=== PATIENT | male | born 1945 | race Caucasian/White ===

== ENCOUNTER 2022-12-03 05:04 | Observation (INO) ==
--- NOTE | 2022-10-10 13:32 | PAT Medication Instructions ---
Medication Instructions Date of Service October 10, 2022 Home Medications Lactobacillus acidophilus 10 mg PO QAM calcium carbonate 200 mg calcium (500 mg) chewable tablet (Tums) 200 mg PO UD calcium polycarbophil 625 mg tablet (Fiber (calcium polycarbophil)) 625 mg PO UD PRN cholecalciferol (vitamin D3) 50 mcg (2,000 unit) tablet (Vitamin D3) 50 mcg PO DAILY doxazosin 8 mg tablet 8 mg PO HS duloxetine 60 mg capsule,delayed release 60 mg PO QAM febuxostat 40 mg tablet 40 mg PO QAM insulin degludec 100 unit/mL (3 mL) subcutaneous pen (Tresiba FlexTouch U-100 insulin) 1 unit subcut UD magnesium oxide 400 mg PO QAM modafinil 200 mg tablet 200 mg PO BID pantoprazole 40 mg tablet,delayed release 40 mg PO Q2D sertraline 100 mg tablet 100 mg PO QAM sodium bicarbonate 650 mg tablet 650 mg PO BID tramadol 50 mg tablet 50 mg PO Q6H PRN Continue as directed pantoprazole 40 mg tablet,delayed release 40 mg PO Q2D DO NOT take the morning of surgery Lactobacillus acidophilus 10 mg PO QAM calcium carbonate 200 mg calcium (500 mg) chewable tablet (Tums) 200 mg PO UD calcium polycarbophil 625 mg tablet (Fiber (calcium polycarbophil)) 625 mg PO UD PRN cholecalciferol (vitamin D3) 50 mcg (2,000 unit) tablet (Vitamin D3) 50 mcg PO DAILY febuxostat 40 mg tablet 40 mg PO QAM magnesium oxide 400 mg PO QAM modafinil 200 mg tablet 200 mg PO BID sodium bicarbonate 650 mg tablet 650 mg PO BID Take morning of surgery With a small sip of water, OTHERWISE NOTHING TO EAT OR DRINK AFTER MIDNIGHT: duloxetine 60 mg capsule,delayed release 60 mg PO QAM sertraline 100 mg tablet 100 mg PO QAM tramadol 50 mg tablet 50 mg PO Q6H PRN(if needed) Take evening before surgery doxazosin 8 mg tablet 8 mg PO HS modafinil 200 mg tablet 200 mg PO BID sodium bicarbonate 650 mg tablet 650 mg PO BID tramadol 50 mg tablet 50 mg PO Q6H PRN(if needed) Insulin Dependent Diabetic Patients * Test your blood sugar the morning of surgery * If Blood Sugar is GREATER THAN 150, take HALF of your regular dose of: insulin degludec 100 unit/mL (3 mL) subcutaneous pen (Tresiba FlexTouch U-100 insulin). * If Blood Sugar is LESS THAN 150, DO NOT TAKE ANY: insulin degludec 100 unit/mL (3 mL) subcutaneous pen (Tresiba FlexTouch U-100 insulin). Other Notes If you have any questions please call us at [phone] or [phone] or [phone] or [phone]
--- NOTE | 2022-10-16 10:23 | Anesthesiology Consultation ---
Date of Service October 16, 2022 Assessment & Plan (1) Encounter for pre-operative examination: - awaiting PCP clearance. - check BSG and BMP STAT am DOS. - dialysis: [facility] F. Holly with surgeon's office made aware pt should be re- scheduled to a non-dialysis day. - limb restriction: right arm. - Outpatient joint assessment: Patient is currently scheduled for inpatient pathway. If re-evaluated pending system levels during current pandemic/surgeon requests outpatient pathway, patient is NOT acceptable candidate for outpatient joint program from anesthesia standpoint. Chart Review Chart Review: Pending: Refer to Additional Notes / Consult section and Patient seen in Pre Admission Testing Teaching & Discussion Pre-Anesthesia Teaching/Discussion Notes: Instructed NPO after midnight before surgery, except medications with 15 cc of water. Medication instructions provided according to the PAT guidelines. History Surgery Operation Date: 11/19/22 07:30 Proposed Procedures p Right Total Knee Arthroplasty - Roni Whatley MD Height/Weight Height: 5 ft 8.5 in Weight: 82.554 kg Allergies Allergy/AdvReac Type Severity Reaction Status Date / Time Penicillins Allergy Severe TONGUE Verified 10/10/22 08:53 SWELLING Medications Home Medications Medication Instructions Recorded Confirmed Last Taken Lactobacillus acidophilus 10 mg PO BID 10/10/22 10/16/22 Unknown calcium carbonate 200 mg calcium 200 mg PO UD 10/10/22 10/10/22 Unknown (500 mg) chewable tablet (Tums) calcium polycarbophil 625 mg 625 mg PO UD PRN Diarrhea 10/10/22 10/10/22 Unknown tablet (Fiber (calcium polycarbophil)) cholecalciferol (vitamin D3) 50 50 mcg PO DAILY 10/10/22 10/10/22 Unknown mcg (2,000 unit) tablet (Vitamin D3) doxazosin 8 mg tablet 8 mg PO HS 10/10/22 10/10/22 Unknown duloxetine 60 mg capsule,delayed 60 mg PO QAM 10/10/22 10/10/22 Unknown release febuxostat 40 mg tablet 40 mg PO QAM 10/10/22 10/10/22 Unknown insulin degludec 100 unit/mL (3 1 unit subcut UD 10/10/22 10/10/22 Unknown mL) subcutaneous pen (Tresiba FlexTouch U-100 insulin) magnesium oxide 400 mg PO QAM 10/10/22 10/10/22 Unknown modafinil 200 mg tablet 200 mg PO BID 10/10/22 10/10/22 Unknown pantoprazole 40 mg tablet,delayed 40 mg PO Q2D 10/10/22 10/10/22 Unknown release sertraline 100 mg tablet 100 mg PO QAM 10/10/22 10/10/22 Unknown sodium bicarbonate 650 mg tablet 650 mg PO BID 10/10/22 10/10/22 Unknown tramadol 50 mg tablet 50 mg PO Q6H PRN Pain 10/10/22 10/10/22 Unknown Additional Notes: Pt takes 20 units insulin am and 50 units pm. This was updated in EMR and written on provided medication instructions, to take evening dose as usual. Pt and his verbalized full understanding and agreement, denied questions or concerns. Past Medical History Medical History (Updated 10/16/22 @ 11:23 by Krysta Palacios PA-C) AV fistula RT BPH (benign prostatic hyperplasia) Chronic kidney disease, stage 4 (severe) Depression Diabetes mellitus, type 2 IDDM Dialysis patient STARTED 10/24/20>[facility] MWF GERD (gastroesophageal reflux disease) controlled, stable per pt Hearing loss wears bilat hearing aids History of kidney stones Hx of gout Hypertension variable, per pt Mini stroke 10+ YEARS AGO>NO CURRENT PROBLEMS FROM EVENT Narcolepsy Peripheral neuropathy Sleep apnea NO DEVICE USED Patient denies h/o seizures, heart attack, heart failure, HTN, blood clots or blood transfusions. Exercise / Class Metabolic Activity III < 4 Walking/Shop/Light housework (ambulates with rolling walker, denies chest discomfort or shortness of breath with usual activities) Past Family History Family History Other No family history of adverse response to anesthesia Past Surgical History Surgical History (Updated 10/16/22 @ 11:21 by Krysta Palacios PA-C) H/O inguinal hernia repair AN INFANT H/O prostate biopsy benign H/O vascular surgery STENT PRESENT IN FISTULA History of appendectomy History of cataract surgery RT/LEFT History of colonoscopy History of esophagogastroduodenoscopy (EGD) History of lithotripsy History of repair of rotator cuff LEFT History of tonsillectomy and adenoidectomy Past Anesthesia History No Hx of Anesthesia Complications and No Family Hx of Anesthesia Complications History of PONV No Hx of PONV and No Hx of Motion Sickness Social History Smoking Status: Never smoker Do You Dip or Chew Tobacco: No Hx Alcohol Use: Yes Alcohol type: beer and wine alcohol intake frequency: holidays/special occasions only substance use type: does not use Review of Systems Patient denies chest pain, shortness of breath, dyspnea on exertion, fever, chills, cough, wheezing, or palpitations. Physical Exam Vital Signs Vitals BP 111/83 P 43 TEMP 97.7 SP02 96% on RA RESP 17 Physical Full cervical extension range of motion without pain TMD 3.5 finger breadths Mallampati Score 2 Dentition: intact, denies chipped or loose teeth, caps/crowns implants or bridges Lungs: normal respiratory effort. Clear throughout to auscultation, no adventitious breath sounds Cardiac: bradycardic rate, regular rhythm, no murmurs noted; radial pulse 2+ Carotid arteries: negative bruit bilat Lab Results Anesthesia Preop Results Results Anesthesia Widget: WBC 6.57 K/ul (4.8-10.8) 10/16/22 Hgb 11.4 g/dl (14.0-18.0) L 10/16/22 Hct 35.0 % (40.1-51.0) L 10/16/22 Plt 163 K/uL (130-400) 10/16/22 Na 139 mmol/L (136-145) 10/16/22 K 4.4 mmol/L (3.5-5.1) 10/16/22 Cl 99 mmol/L (98-107) 10/16/22 CO2 33 mmol/L (21-32) H 10/16/22 BUN 63 mg/dl (6-23) H 10/16/22 Creat 5.45 mg/dl (0.6-1.4) H* 10/16/22 Glucose Level 169 mg/dl (70-99(Fasting)) H 10/16/22 PT 10.6 Seconds (9.0-12.0) 10/16/22 PTT 28.8 Seconds (21.0-31.0) 10/16/22 INR 1.0 (0.9-1.1) 10/16/22 HA1c 6.4 % (4.5-5.6) H 10/16/22 Blood Type O Positive 10/16/22 Antibody Screen NEGATIVE 10/16/22 Testing Electrocardiogram Date: 10/16/22 Marked sinus bradycardia, rate [address] abnormality Chest X-Ray Date: 10/16/22 Right axillary vascular stents are incidentally noted. There is no pneumothorax or pleural effusion. Mild cardiomegaly. No evidence for pulmonary edema. Linear bibasilar opacities suggest atelectasis. No consolidation to suggest pneumonia. There is a suspected hiatal hernia. IMPRESSION: No acute cardiopulmonary findings. Mild cardiomegaly. COVID-19 Risk Screen Screening Information COVID-19 Screen Date: 10/16/22 Exposure 21 Days Family/Household +COVID Last 21 Days: No Exposure 10 Days Any COVID Exposure Last 10 Days: No Symptoms Last 10 Days Experienced COVID Sx Last 10 Days: No + COVID 0-90 Days COVID + in Last 0-90 Days: No
--- NOTE | 2022-10-29 16:01 | Communication Note ---
Received phone call from Dr. Whatley- he would like to schedule patient for surgery on 12/03/22 for a right TKA. Surgery would be on a Saturday (patient gets dialysis M,W,F). Dr. Whatley only has operating time on Mondays. Discussed with Dr. Morgan- recommended surgeon's office gets in touch with nephrology office for recommendations to see if patient can have surgery on Saturday and then set up patient for subsequent dialysis postop or if patient is going to need to avoid Saturday surgery all together (which in that case- patient would need to get surgery elsewhere). Dr. Whatley voices understanding with plan- his office will reach out to patient's nephrologogist regarding when patient can have surgery in regards to dialysis. He states he will be in touch with our office when plan is in place
[~2022-12-03 05:04] MED LIST: ALLERGY Noted to ORDERED Medication SCH
[2022-12-03] MEDS ORDERED: SODIUM CHLORIDE 0.9% 1000ML IV SCH (06:00)
[2022-12-03] MEDS ORDERED: FAMOTIDINE 20 MG TAB PO SCH (06:00)
[2022-12-03] MEDS ORDERED: ROPIVACAINE 0.5% HCL/PF 150 MG, BUPIVACAINE 0.75% MPF 20 ML, EPINEPHrine 30MG/30ML (OR ... INFIL SCH (06:00)
[2022-12-03] MEDS ORDERED: PREGABALIN 75 MG CAP PO SCH (06:00)
[2022-12-03] MEDS ORDERED: METOCLOPRAMIDE HCL 10 MG TABLET PO SCH (06:00)
[2022-12-03] MEDS ORDERED: TRANEXAMIC ACID 1,000 MG x 1 **For Topical Use TOP SCH (06:00)
[2022-12-03] MEDS ORDERED: dexAMETHasone 4 MG TAB PO SCH (06:00)
[2022-12-03] MEDS: ACETAMINOPHEN 500 MG TAB PO SCH ×4 (06:12→21:59)
[2022-12-03] MEDS ORDERED: BUPIVACAINE 0.5 % 5 MG/1 ML PF 10ML VIAL ONE (06:23)
[2022-12-03] MEDS ORDERED: ROPIVACAINE 0.5% 5 MG/ML 30 ML VIAL ONE (06:23)
[2022-12-03] MEDS ORDERED: LIDOCAINE 2% MPF LOCAL 5 ML VIAL INFIL ONE (07:03)
[2022-12-03] MEDS ORDERED: PROPOFOL IV EMULSION 10 MG/ML 20 ML VIAL IV ONE (07:03)
[2022-12-03] MEDS ORDERED: MIDAZOLAM HCL 1 MG/ML 2ML VIAL ONE (07:04)
[2022-12-03] MEDS ORDERED: fentaNYL citrate PF 100 MCG/2 ML VIAL ONE (07:04)
[2022-12-03] MEDS ORDERED: ATROPINE SULFATE 0.1 MG/ML 10ML SYR IV PRN (07:07)
[2022-12-03] MEDS ORDERED: fentaNYL citrate PF 100 MCG/2 ML VIAL IV PRN (07:07)
[2022-12-03] MEDS ORDERED: ONDANSETRON INJ 2 MG/ML 2 ML VIAL IV PRN ×2 (07:07→09:24)
[2022-12-03] MEDS ORDERED: ePHEDrine sulfate 50 MG/ML AMP IV PRN (07:07)
[2022-12-03] MEDS ORDERED: ceFAZolin 2000MG 2,000 MG/15 ML SYR IV ONE (07:09)
--- NOTE | 2022-12-03 07:14 | History & Physical Report ---
Date of Service December 03, 2022 Assessment & Plan (1) Osteoarthritis of right knee: Plan: I have recommended proceeding with a right total knee replacement. I explained the risk benefits and alternatives to him and he has consented to proceed. We will order morning of labs to verify his potassium is okay to proceed with surgery. We will plan on dialysis after surgery and admission to the hospital. History of Present Illness Chief Complaint: Right knee pain and osteoarthritis Primary Care Provider: Edwige Freitas Mr. Tariq is a 77-year-old male with right knee osteoarthritis. After the failure of conservative treatment I recommended proceeding with a total knee replacement. He has chronic renal failure and is on dialysis. His last dialysis was 3 days ago. Consultation with his instructor of nursing suggested he would be okay to proceed with surgery and receive dialysis later today or tomorrow. Allergies Allergy/AdvReac Type Severity Reaction Status Date / Time Penicillins Allergy Severe TONGUE Verified 12/03/22 05:43 SWELLING Home Medications Medication Instructions Recorded Confirmed Type Lactobacillus acidophilus 10 mg PO BID 10/10/22 12/03/22 History calcium carbonate 200 mg calcium 200 mg PO UD 10/10/22 12/03/22 History (500 mg) chewable tablet (Tums) calcium polycarbophil 625 mg 625 mg PO UD PRN Diarrhea 10/10/22 12/03/22 History tablet (Fiber (calcium polycarbophil)) cholecalciferol (vitamin D3) 50 50 mcg PO DAILY 10/10/22 12/03/22 History mcg (2,000 unit) tablet (Vitamin D3) doxazosin 8 mg tablet 8 mg PO HS 10/10/22 12/03/22 History duloxetine 60 mg capsule,delayed 60 mg PO QAM 10/10/22 12/03/22 History release febuxostat 40 mg tablet 40 mg PO QAM 10/10/22 12/03/22 History insulin degludec 100 unit/mL (3 1 unit subcut UD 10/10/22 12/03/22 History mL) subcutaneous pen (Tresiba FlexTouch U-100 insulin) magnesium oxide 400 mg PO QAM 10/10/22 12/03/22 History modafinil 200 mg tablet 200 mg PO BID 10/10/22 12/03/22 History pantoprazole 40 mg tablet,delayed 40 mg PO Q2D 10/10/22 12/03/22 History release sertraline 100 mg tablet 100 mg PO QAM 10/10/22 12/03/22 History sodium bicarbonate 650 mg tablet 650 mg PO BID 10/10/22 12/03/22 History tramadol 50 mg tablet 50 mg PO Q6H PRN Pain 10/10/22 12/03/22 History atenolol 25 mg tablet 12.5 mg PO DIRECTED 12/03/22 12/03/22 History Past Med/Surg History Medical History (Updated 12/03/22 @ 07:13 by Roni Whatley MD) AV fistula RT BPH (benign prostatic hyperplasia) Chronic kidney disease, stage 4 (severe) Depression Diabetes mellitus, type 2 IDDM Dialysis patient STARTED 10/24/20>[facility] MWF GERD (gastroesophageal reflux disease) controlled, stable per pt Hearing loss wears bilat hearing aids History of kidney stones Hx of gout Hypertension variable, per pt Mini stroke 10+ YEARS AGO>NO CURRENT PROBLEMS FROM EVENT Narcolepsy Peripheral neuropathy Sleep apnea NO DEVICE USED Surgical History H/O inguinal hernia repair AN H/O prostate biopsy benign H/O vascular surgery STENT PRESENT IN FISTULA History of appendectomy History of cataract surgery RT/LEFT History of colonoscopy History of esophagogastroduodenoscopy (EGD) History of lithotripsy History of repair of rotator cuff LEFT History of tonsillectomy and adenoidectomy Family History Other No family history of adverse response to anesthesia Social History Smoking Status: Never smoker Second Hand Exposure: No; Do You Dip or Chew Tobacco: No; Hx Alcohol Use: Yes Alcohol type: beer and wine Preferred Language: Georgian Candy Mixer Required: No Current Living Situation: Spouse Feels Safe at Home: Yes Safety Concerns: Feels Safe At This Time Assistive Devices: Glasses, Hearing Aid - Bilateral and Walker Assistive Devices Comment: READING GLASSES Physical Exam Constitutional: Patient is awake alert and oriented with no acute distress Eyes: Eyes are clear and reactive to light ENMT: Ears nose and mouth are clear Neck: Neck is supple with no masses Respiratory: Clear to auscultation Cardiovascular: Regular rate and rhythm Gastrointestinal (Abdomen): Soft and nontender Musculoskeletal: Right knee is tender with effusion. He has decreased range of motion. Varus alignment. Skin: Clean dry and intact Results & Data Results & Data ([facility]) Vital Signs (Past 12 Hours) Vital Signs Temp Pulse Resp BP Pulse Ox O2 Del Method 12/03/22 06:03 36.9 C 50 L 20 151/67 H 95 Room Air Code Status & VTE Plan VTE Prophylaxis Plan VTE Prophylaxis will be ordered: Yes
[2022-12-03] MEDS ORDERED: Nursing to Pharmacy Communication SCH (07:15)
[2022-12-03] MEDS ORDERED: GLYCOPYRROLATE 0.2 MG/ML VIAL ONE ×2 (07:19→07:22)
[2022-12-03] MEDS ORDERED: ceFAZolin 2,000 MG/15 ML IV PUSH IV ONE (07:20)
[2022-12-03] MEDS ORDERED: ORTHO JOINT ANESTHETIC ONE (07:33)
[2022-12-03] MEDS ORDERED: ePHEDrine sulfate 50 MG/ML AMP ONE (08:06)
[2022-12-03] MEDS ORDERED: SODIUM CHLORIDE 0.9% PF INJ 10 ML VIAL ONE (08:06)
[2022-12-03] MEDS ORDERED: PHENYLEPHRINE HCL 10 MG/ML VIAL ONE (08:06)
[2022-12-03] MEDS ORDERED: PHENYLEPHRINE 100MCG/ML 5ML SYR ONE (08:06)
--- NOTE | 2022-12-03 09:18 | Post Operative Brief Note ---
Immediate Post Op Note v1 Date of Surgery December 03, 2022 Pre & Post Diagnosis Operation Date: 12/03/22 07:30 Pre-Op Diagnosis: Right Knee Osteoarthritis Post-Op Diagnosis: Right Knee Osteoarthritis I identified the patient and participated in the time-out.: Yes Procedure Operation Date: 12/03/22 07:30 Actual Procedures p Right Total Knee Arthroplasty(Right) - Roni Whatley MD Surgeon Roni Whatley MD Burning Plant Operator Clare Peacock PA-C Estimated Blood Loss 5 Findings Consistent with Post-Op Diagnosis Osteoarthritis right knee Anesthesia Type MAC Spinal Regional Complications No complications
[2022-12-03] MEDS ORDERED: CALCIUM POLYCARBOPHIL 625MG TAB PO PRN (09:21)
--- NOTE | 2022-12-03 09:21 | Operative Report ---
Post Operative Report Pre & Post Diagnosis Operation Date: 12/03/22 07:30 Pre-Op Diagnosis: Right Knee Osteoarthritis Post-Op Diagnosis: Right Knee Osteoarthritis I identified the patient and participated in the time-out.: Yes Procedure Operation Date: 12/03/22 07:30 Actual Procedures p Right Total Knee Arthroplasty(Right) - Roni Whatley MD Surgeon Roni Whatley MD Group Tester Clare Peacock PA-C Estimated Blood Loss 5 Findings Consistent with Post-Op Diagnosis Osteoarthritis right knee Specimens Bone and cartilage right knee Drains No drains Complications No complications Indications Roni is a 77-year-old male with right knee osteoarthritis. After the failure of conservative treatment I recommended a total knee replacement. Description of Procedure Implants: Karen triathlon cemented cruciate retaining total knee replacement. Femur size 4. Tibia size 5 primary baseplate. Polyethylene size 5 x 11 mm cruciate stabilized. Patella size 39 mm symmetrical. Procedure: The patient was taken to the operating room and after verifying their identity and confirming the operative side spinal anesthesia and a regional block was administered. A nonsterile tourniquet was placed on the operative leg and the operative leg was sterilely prepped and draped in usual fashion. After exsanguinating the leg and inflating the tourniquet a 6 inch incision was made over the patella and carried sharply through subcutaneous tissue. A medial parapatellar arthrotomy was performed, the patella was everted, and planed to a thickness of 14 mm. The appropriate size patella was trialed and the drill holes were completed. The knee was flexed and the femur cleaned of soft tissue. The femoral intramedullary guide was utilized to take a 5 valgus cut 10 mm total resection. The distal femur cut was completed. The cutting guide was removed. The AP sizing guide was placed in the correct size determined. The appropriately sized sized 4 in 1 cutting guide was placed and its position confirmed with the epicondyle axis and anterior cortex. The cuts were completed. The tibia was subluxed forward and the extra medullary tibial guide was placed and pinned in place. A 2 mm resection was measured on the medial tibial plateau perpendicular to the long axis of the tibia. The proximal tibia was cut. The guide was removed. A lamina oil field equipment mechanic was placed with the knee in 90 of flexion in the remaining meniscus and posterior soft tissue were removed. The PCL was preserved. 20 cc of local injection was utilized in the posterior capsule and soft tissues. The knee was balanced in flexion and extension utilizing the gap supervisor orchard. The tibia was subluxed forward and the appropriately sized trial was placed and pinned in place. The femoral trial was placed and the appropriate size poly-was utilized to achieve full extension, full flexion and good stability to varus and valgus stress. Trial components were all removed. The knee was thoroughly irrigated with pulse lavage, bacteriocidal wash, and a repeat pulse lavage. 20 cc of local injection was utilized in the medial tissues and 20 cc in the lateral tissues. Antibiotic cement was mixed using vacuum technique in the tibial and femoral components were cemented in place. The poly-was inserted and the knee held in full extension while the cement hardened. The patella was cemented and clamped. Excess cement was carefully removed. After the cement hardened range of motion was once again assessed and noted to be full including full extension and good stability to varus and valgus stress with central patellar tracking. The knee was irrigated with pulse lavage, a bacteriocidal wash, and a repeat pulse lavage. 20 cc of local was used in the anterior subcutaneous tissues. The arthrotomy was closed with #1 Ethibond, the remaining incision with 2-0 Vicryl and sushma. A silver dressing was applied and a compression wrap. The patient tolerated the procedure well and there were no intraoperative complications. Clare Peacock PA-C assisted in all aspects of the procedure including patient positioning, prepping and draping, manipulation of surgical instruments and retractors, wound closure, dressing placement, and compression wrap placement. I attest to the content of the Intraoperative Record and any orders documented therein. Any exceptions are noted below.
[2022-12-03] MEDS ORDERED: oxyCODONE HCL IR 5 MG TAB (IMMEDIATE RELEASE) PO PRN (09:24)
[2022-12-03] MEDS ORDERED: NALOXONE HCL 0.4 MG/1 ML VIAL/CARP IV PRN (09:24)
[2022-12-03] MEDS ORDERED: ATENOLOL 25 MG TABLET PO PRN (09:30)
[2022-12-03] MEDS ORDERED: NON-FORMULARY MEDICATION (Insulin Degludec [Tresiba Flextouch U-100] 100 unit/mL (3 mL) In SQ SCH (09:30)
--- NOTE | 2022-12-03 10:38 | Anesthesiology Progress Note ---
Date of Service December 03, 2022 Anesthesia Post Procedure Vital Signs Vital Signs: Temp Pulse Pulse Resp BP Pulse Ox O2 Del Method 12/03/22 10:25 97.7 F 49 L 22 126/61 96 Nasal Cannula 12/03/22 10:15 97.7 F 49 L 16 111/60 96 Nasal Cannula 12/03/22 10:05 97.7 F 56 L 22 118/61 98 Oxymask 12/03/22 09:55 97.7 F 51 L 17 124/60 98 Oxymask 12/03/22 09:47 97.7 F 53 L 15 107/68 98 Oxymask 12/03/22 06:03 98.4 F 50 L 20 151/67 H 95 Room Air O2 Flow Rate 12/03/22 10:25 4 12/03/22 10:15 4 12/03/22 10:05 6 12/03/22 09:55 6 12/03/22 09:47 6 12/03/22 06:03 Transfer of Care Handoff Completed per policy Notes Mental Status: alert / awake / arousable and participated in evaluation Patient Amnestic to Procedure: Yes Nausea / Vomiting: adequately controlled Pain: adequately controlled Airway Patency, RR, SpO2: stable & adequate BP & HR: stable & adequate Hydration State: stable & adequate Neuraxial Anesthesia: was administered and sensory block is resolving Anesthetic Complications: no major complications apparent and Pt Satisfied with anesthetic care
[2022-12-03 11:07] LABS: BUN Creatinine Ratio 12.8 (10-20); Calcium 8.4 mg/dl (8.5-10.1); Creatinine Clr Calc Pharmacy 9.1 ml/min; Est GFR (African American) 7.4 ml/min; Est GFR (Non-African American) 6.4 ml/min; Potassium 4.3 mmol/L (3.5-5.1)
[2022-12-03] MEDS ORDERED: PHARMACY GLYCEMIC MGMT CONSULT PRN (11:11)
[2022-12-03] MEDS: SODIUM CHLORIDE 0.9% 1000ML 1,000 ML IV SCH ×2 (11:28→22:45)
--- NOTE | 2022-12-03 11:36 | Hospitalist Consultation ---
Date of Consultation December 03, 2022 Assessment & Plan (1) Osteoarthritis of right knee: s/p Right Total Knee Arthroplasty(Right) - Roni Whatley MD. EBL 5cc Pain control/bowel regimen/PT/OT per primary service ASA 81mg BID for DVT prophylaxis ordered Will decrease IVF to 50cc/hr for now and would discontinue once more alert/awake taking PO Called pharmacy to give dose modafinil now -- takes in AM and 2-3pm in afternoon. Ordered for /9pm for his narcolepsy Follows with Dr Velarde for HD [phone], // -- provided number to Dr Barahona to contact primary box feeder to see if needing HD today or if can wait until tomorrow Monitor labs on repeat (2) ESRD (end stage renal disease) on dialysis: ESRD on HD // Was cleared for surgery and to have HD tomorrow, Cr is 7.5 Nephrology consulted to see if need for HD today vs tomorrow -- defer decision to Dr Barahona who will see this afternoon but likely will plan for HD tomorrow morning (12/04) Continue usual meds/sodium bicarb, PPI ordered for today Monitor BMP in AM (3) Hypertension: BP stable Takes atenolol on non-HD days -- BP 129/56 currently and will hold off giving for now DID NOT ORDER FOR AM UNTIL SEEING IF HD TODAY VS TOMORROW --> IF WAITING UNTIL TOMORROW, FAMILY/PT STATE HE TAKES AM HD DAYS IF SBP >200 OR DBP >94 Monitor BP (4) Diabetes mellitus, type 2: On Tresiba at home Pharmacy consulted for glycemic management (5) Narcolepsy: hx such, on modafinil 200mg BID arousable/alert but sleepy post-op --- did not take his dose this morning --> called pharmacy for dose now--> changed schedule for AM and between 2-3pm as takes at home (6) GERD (gastroesophageal reflux disease): on PPI Q2D -- scheduled for today but can hold if needed/going to HD (7) Sleep apnea: does not have device, doesn't use at baseline f/u Pcp Plan Thank you for allowing hospitalist service to participate in the care of Mr Tariq. Hospitalist service will follow along. Please call with any questions/concerns. Supervising Physician Co-Signing Physician Notes I personally saw and examined the patient. I verified all jade points and agree with Clare Esparza PA-C with the following exceptions and/or additions: 77 year old with ESRD POD#0 right TKA. Patient feeling strange post operatively and initially thought his glucose was running low but BSG 180. Reports feeling like he is just suddenly walking into the light. No headache. O/E A&Ox3, HS RRR, no murmurs, Chest CTAB Abdo SNT, NV intact distal to operation site, dressing C/D/I, CN 2-> 12 intact, no pronator drift, did not fully exam lower legs due to recent surgery. A/P VTE/Pain/Bowel management per primary orthopedic team Odd feeling post operatively - obtained labs, possibly just due to uremia which should be sorted out with dialysis tomorrow. Possible just post anesthesia. Neurological exam is unremarkable. Advised patient to let nurses know if he is getting worse. History of Present Illness Reason for Consultation: med management Requesting Physician: Dr Whatley Attending Physician: Roni Whatley MD History of Present Illness 77yo male with PMHx significant for ESRD on HD M/W/F, narcolepsy, HTN, HLD, TOMASA, GERD presented for RIGHT TKA with Dr Whatley. EBL 5cc. Patient evaluated in room 317, sleepy from anesthesia but able to be woken up. Family at bedside, he did not take his provigil this morning, only his insulin. States he typically takes this in the morning and then afternoon dose between 2- 3pm. Called pharmacy for dose now and then to change schedule moving forward. Does have ESRD on HD, last treatment Saturday. Follows with Dr Velarde [phone] -- given # to Dr Barahona to see if HD today or tomorrow. Family states possibly HD today or tomorrow -- will defer to Nephrology given K stable. Patient denies any fever/chills, chest pain, shortness of breath, abdominal pain. He is hungry, not yet eaten anything. No pain at present but nerve block still in place. Planning for discharge tomorrow -- dispo per primary. Medications verified. He takes atenolol on non-HD days, and on HD days if SBP >200 or DBP >94. Also takes protonix on non-HD days. Questions/concerns addressed. Allergies Allergy/AdvReac Type Severity Reaction Status Date / Time Penicillins Allergy Severe TONGUE Verified 12/03/22 05:43 SWELLING Home Medications Medication Instructions Recorded Confirmed Type Lactobacillus acidophilus 10 mg PO BID 10/10/22 12/03/22 History calcium carbonate 200 mg calcium 200 mg PO UD 10/10/22 12/03/22 History (500 mg) chewable tablet (Tums) calcium polycarbophil 625 mg 625 mg PO UD PRN Diarrhea 10/10/22 12/03/22 History tablet (Fiber (calcium polycarbophil)) cholecalciferol (vitamin D3) 50 50 mcg PO DAILY 10/10/22 12/03/22 History mcg (2,000 unit) tablet (Vitamin D3) doxazosin 8 mg tablet 8 mg PO HS 10/10/22 12/03/22 History duloxetine 60 mg capsule,delayed 60 mg PO QAM 10/10/22 12/03/22 History release febuxostat 40 mg tablet 40 mg PO QAM 10/10/22 12/03/22 History insulin degludec 100 unit/mL (3 1 unit subcut UD 10/10/22 12/03/22 History mL) subcutaneous pen (Tresiba FlexTouch U-100 insulin) magnesium oxide 400 mg PO QAM 10/10/22 12/03/22 History modafinil 200 mg tablet 200 mg PO BID 10/10/22 12/03/22 History pantoprazole 40 mg tablet,delayed 40 mg PO Q2D 10/10/22 12/03/22 History release sertraline 100 mg tablet 100 mg PO QAM 10/10/22 12/03/22 History sodium bicarbonate 650 mg tablet 650 mg PO BID 10/10/22 12/03/22 History tramadol 50 mg tablet 50 mg PO Q6H PRN Pain 10/10/22 12/03/22 History atenolol 25 mg tablet 12.5 mg PO DIRECTED 12/03/22 12/03/22 History Patient History Medical History (Updated 12/03/22 @ 12:30 by Haris Barahona DO) AV fistula RT BPH (benign prostatic hyperplasia) Depression Diabetes mellitus, type 2 IDDM Dialysis patient STARTED 10/24/20>[facility] MWF GERD (gastroesophageal reflux disease) controlled, stable per pt Hearing loss wears bilat hearing aids History of kidney stones Hx of gout Hypertension variable, per pt Mini stroke 10+ YEARS AGO>NO CURRENT PROBLEMS FROM EVENT Narcolepsy Peripheral neuropathy Sleep apnea NO DEVICE USED Surgical History H/O inguinal hernia repair AN H/O prostate biopsy benign H/O vascular surgery STENT PRESENT IN FISTULA History of appendectomy History of cataract surgery RT/LEFT History of colonoscopy History of esophagogastroduodenoscopy (EGD) History of lithotripsy History of repair of rotator cuff LEFT History of tonsillectomy and adenoidectomy Family History Other No family history of adverse response to anesthesia Social History Smoking Status: Never smoker Second Hand Exposure: No; Do You Dip or Chew Tobacco: No; Hx Alcohol Use: Yes Alcohol type: beer and wine Preferred Language: Andorran Sugar Mixer Required: No Current Living Situation: Spouse Feels Safe at Home: Yes Safety Concerns: Feels Safe At This Time Assistive Devices: Glasses, Hearing Aid - Bilateral and Walker Assistive Devices Comment: READING GLASSES Review of Systems Review of Systems: All systems reviewed & are unremarkable except as noted in HPI & below Physical Exam Physical Exam: General: WD/WN male resting in bed post-op, NAD Resp: CTAB, no w/c, on 2L NC, no tachypnea/cough CV: bradycardic, no pitting edema, pulses palpable, cap refill wnl GI: +BS, obese/distended, NONTENDER : no espinal MSK/Neuro: follows commands as able, dressing to knee c/d/i, SCDs in place, nerve block still in place and no sensation to touch/pressure at this time or ability to wiggle toes Psych: sleepy, easily awoken, knows where he is/what surgery he had Results & Data Results & Data ([facility]) Vital Signs (Past 12 Hours) Vital Signs Temp Pulse Pulse Resp BP Pulse Ox O2 Del Method 12/03/22 11:00 36.5 C 53 L 18 145/66 H 99 Nasal Cannula 12/03/22 10:35 36.6 C 47 L 19 121/61 96 Nasal Cannula 12/03/22 10:25 36.5 C 49 L 22 126/61 96 Nasal Cannula 12/03/22 10:15 36.5 C 49 L 16 111/60 96 Nasal Cannula 12/03/22 10:05 36.5 C 56 L 22 118/61 98 Oxymask 12/03/22 09:55 36.5 C 51 L 17 124/60 98 Oxymask 12/03/22 09:47 36.5 C 53 L 15 107/68 98 Oxymask 12/03/22 06:03 36.9 C 50 L 20 151/67 H 95 Room Air O2 Flow Rate 12/03/22 11:00 2 12/03/22 10:35 4 12/03/22 10:25 4 12/03/22 10:15 4 12/03/22 10:05 6 12/03/22 09:55 6 12/03/22 09:47 6 12/03/22 06:03 Laboratory Results 12/03/22 12/03/22 12/03/22 Range/Units Unknown 10:21 09:58 Sodium 139 (136-145) mmol/L Potassium 4.3 (3.5-5.1) mmol/L Chloride 105 (98-107) mmol/L Carbon Dioxide 25 (21-32) mmol/L Anion Gap 9 (3-11) BUN 96 H (6-23) mg/dl Creatinine 7.50 H* (0.6-1.4) mg/dl Est Cr Clr Drug Dosing 9.1 ml/min Est GFR ( Amer) 7.4 ml/min Est GFR (Non-Af Amer) 6.4 ml/min BUN/Creatinine Ratio 12.8 (10-20) Glucose 131 H (70-99(Fasting)) mg/dl POC Glucose 114 H (70-99) mg/dl Calcium 8.4 L (8.5-10.1) mg/dl SARS-CoV-2, RNA, NAAT NEGATIVE (NEGATIVE) 12/03/22 Range/Units 05:39 Sodium (136-145) mmol/L Potassium (3.5-5.1) mmol/L Chloride (98-107) mmol/L Carbon Dioxide (21-32) mmol/L Anion Gap (3-11) BUN (6-23) mg/dl Creatinine (0.6-1.4) mg/dl Est Cr Clr Drug Dosing ml/min Est GFR ( Amer) ml/min Est GFR (Non-Af Amer) ml/min BUN/Creatinine Ratio (10-20) Glucose (70-99(Fasting)) mg/dl POC Glucose 172 H (70-99) mg/dl Calcium (8.5-10.1) mg/dl SARS-CoV-2, RNA, NAAT (NEGATIVE) PG Care Time/CCT Total # of Minutes Spent Total Time Spent with Patient: Total time spent is greater than 50% in coordination of care (as documented) at patient's floor/unit and/or counseling patient: Coding Level of Care Code 62738 IN/OBS CONSULT LVL 4,60M Diagnoses Osteoarthritis of right knee M17.11 ESRD (end stage renal disease) on dialysis N18.6; Z99.2 Hypertension I10 Diabetes mellitus, type 2 E11.9 Narcolepsy G47.419 GERD (gastroesophageal reflux disease) K21.9 Sleep apnea G47.30
[2022-12-03] MEDS ORDERED: GLUCOSE 40% GEL 15 GM TUBE PO PRN (11:45)
[2022-12-03] MEDS ORDERED: GLUCOSE 10 TAB/TUBE PO PRN (11:45)
[2022-12-03] MEDS ORDERED: DEXTROSE 50% 50 ML SYRINGE IV PRN (11:45)
[2022-12-03] MEDS ORDERED: LANTUS PER UNIT CHARGE SQ ONE ×3 (11:45→21:00)
[2022-12-03] MEDS ORDERED: CARBOHYDRATES FOR HYPOGLYCEMIA PO PRN (11:45)
[2022-12-03] MEDS ORDERED: GLUCAGON FOR INJ 1 MG VIAL IM PRN (11:45)
--- NOTE | 2022-12-03 12:25 | Nephrology Consultation ---
Date of Consultation December 03, 2022 Assessment & Plan (1) ESRD (end stage renal disease) on dialysis: Outpatient Rx MWF at [facility] x 3.5 hours on 180 optiflux Qb 450, Qd 700; 2 K 2 calcium. Well functioning RUE AVF with good thrill and bruit. Clearance with treatments has been accetpable. EDW 79 kg. BP and volume status acceptable. Electrolytes controlled. Plan HD tomorrow AM. Medications appropriate for kidney function. Check H/H and renal profile tomorrow AM prior to treatment. Plan discussed with HD RN. (2) Hypertension: BP acceptable. Continue home medications as Rx. Hold atenolol tomorrow AM prior to HD. (3) Osteoarthritis of right knee: s/p R TKA by Dr. Whatley. No surgical or perioperative complications. Pain controlled. History of Present Illness Reason for Consultation: ESRD on HD Requesting Physician: Roni Whatley MD Attending Physician: Roni Whatley MD History of Present Illness Mr. Roni Tariq is a 77 year-old male with diabetes mellitus, hypertension, OA/DJD, and ESRD. He is maintained on IHD at [facility] under the care of Dr. Velarde. Roni dialyzes on a MWF schedule. He completed his last dialysis treatment on Saturday without complications. I spoke to staff at [facility] today. Outpatient Rx is 3.5 hrs on a 180 optiflux at Qb 450 and Qd 700, 2 K 2 calcium. EDW 79.2 kg. Roni left dialysis at 79 kg on Saturday s/p net UF 1.8 L. He was admitted to [facility] today for observation following elective R TKA. Surgery was completed by Dr. Whatley without complications. Roni was resting comfortably in bed post operatively this afternoon. His and son were at the bedside. I discussed the patient's history and reviewed the plan of care with Clare Esparza PA-C this AM. Roni was somnolent but otherwise felt well. He does have a history of narcolepsy and has not taken modafinil today. He is breathing comfortably. He denies notable fluid retention or edema. Pain controlled. Allergies Allergy/AdvReac Type Severity Reaction Status Date / Time Penicillins Allergy Severe TONGUE Verified 12/03/22 05:43 SWELLING Home Medications Medication Instructions Recorded Confirmed Type Lactobacillus acidophilus 10 mg PO BID 10/10/22 12/03/22 History calcium carbonate 200 mg calcium 200 mg PO UD 10/10/22 12/03/22 History (500 mg) chewable tablet (Tums) calcium polycarbophil 625 mg 625 mg PO UD PRN Diarrhea 10/10/22 12/03/22 History tablet (Fiber (calcium polycarbophil)) cholecalciferol (vitamin D3) 50 50 mcg PO DAILY 10/10/22 12/03/22 History mcg (2,000 unit) tablet (Vitamin D3) doxazosin 8 mg tablet 8 mg PO HS 10/10/22 12/03/22 History duloxetine 60 mg capsule,delayed 60 mg PO QAM 10/10/22 12/03/22 History release febuxostat 40 mg tablet 40 mg PO QAM 10/10/22 12/03/22 History insulin degludec 100 unit/mL (3 1 unit subcut UD 10/10/22 12/03/22 History mL) subcutaneous pen (Tresiba FlexTouch U-100 insulin) magnesium oxide 400 mg PO QAM 10/10/22 12/03/22 History modafinil 200 mg tablet 200 mg PO BID 10/10/22 12/03/22 History pantoprazole 40 mg tablet,delayed 40 mg PO Q2D 10/10/22 12/03/22 History release sertraline 100 mg tablet 100 mg PO QAM 10/10/22 12/03/22 History sodium bicarbonate 650 mg tablet 650 mg PO BID 10/10/22 12/03/22 History tramadol 50 mg tablet 50 mg PO Q6H PRN Pain 10/10/22 12/03/22 History atenolol 25 mg tablet 12.5 mg PO DIRECTED 12/03/22 12/03/22 History Patient History Medical History (Updated 12/03/22 @ 12:30 by Haris Barahona DO) AV fistula RT BPH (benign prostatic hyperplasia) Depression Diabetes mellitus, type 2 IDDM Dialysis patient STARTED 10/24/20>[facility] MWF GERD (gastroesophageal reflux disease) controlled, stable per pt Hearing loss wears bilat hearing aids History of kidney stones Hx of gout Hypertension variable, per pt Mini stroke 10+ YEARS AGO>NO CURRENT PROBLEMS FROM EVENT Narcolepsy Peripheral neuropathy Sleep apnea NO DEVICE USED Surgical History H/O inguinal hernia repair AN H/O prostate biopsy benign H/O vascular surgery STENT PRESENT IN FISTULA History of appendectomy History of cataract surgery RT/LEFT History of colonoscopy History of esophagogastroduodenoscopy (EGD) History of lithotripsy History of repair of rotator cuff LEFT History of tonsillectomy and adenoidectomy Family History Other No family history of adverse response to anesthesia Social History Smoking Status: Never smoker Second Hand Exposure: No; Do You Dip or Chew Tobacco: No; Hx Alcohol Use: Yes Alcohol type: beer and wine Preferred Language: Trinidadian Aviation Safety Technician Required: No Current Living Situation: Spouse Feels Safe at Home: Yes Safety Concerns: Feels Safe At This Time Assistive Devices: Glasses, Hearing Aid - Bilateral and Walker Assistive Devices Comment: READING GLASSES Review of Systems Review of Systems: All systems reviewed & are unremarkable except as noted in HPI & below Physical Exam Constitutional: well developed; no acute distress Eyes: no scleral abnormality and no corneal abnormality ENMT: Mouth: no oral mucosal abnormality and oral mucous membranes not dry Neck: normal visual inspection and trachea midline Respiratory: normal respiratory effort Auscultation: lungs clear to auscultation bilaterally Cardiovascular: Rate/Rhythm: regular rate Heart Sounds: normal S1, normal S2 and + murmur Extremities: + pedal edema and + AV fistula Musculoskeletal: Extremities: no cyanosis and no clubbing Skin: normal turgor; no lesions Neurologic: Motor/Sensory: no tremor and no asterixis Psychiatric: Orientation: alert and oriented x 3 Results & Data ([facility]) Vital Signs (Past 12 Hours) Vital Signs Temp Pulse Pulse Resp BP Pulse Ox O2 Del Method 12/03/22 12:00 36.2 C L 47 L 18 150/71 H 96 Nasal Cannula 12/03/22 11:29 36.5 C 52 L 18 129/56 L 96 Nasal Cannula 12/03/22 11:00 36.5 C 53 L 18 145/66 H 99 Nasal Cannula 12/03/22 10:35 36.6 C 47 L 19 121/61 96 Nasal Cannula 12/03/22 10:25 36.5 C 49 L 22 126/61 96 Nasal Cannula 12/03/22 10:15 36.5 C 49 L 16 111/60 96 Nasal Cannula 12/03/22 10:05 36.5 C 56 L 22 118/61 98 Oxymask 12/03/22 09:55 36.5 C 51 L 17 124/60 98 Oxymask 12/03/22 09:47 36.5 C 53 L 15 107/68 98 Oxymask 12/03/22 06:03 36.9 C 50 L 20 151/67 H 95 Room Air O2 Flow Rate 12/03/22 12:00 12/03/22 11:29 2 12/03/22 11:00 2 12/03/22 10:35 4 12/03/22 10:25 4 12/03/22 10:15 4 12/03/22 10:05 6 12/03/22 09:55 6 12/03/22 09:47 6 12/03/22 06:03 Laboratory Results Laboratory Results - last 24 hr 12/03/22 12/03/22 12/03/22 05:39 09:58 10:21 Sodium 139 Potassium 4.3 Chloride 105 Carbon Dioxide 25 Anion Gap 9 BUN 96 H Creatinine 7.50 H* Est Cr Clr Drug Dosing 9.1 Est GFR ( Amer) 7.4 Est GFR (Non-Af Amer) 6.4 BUN/Creatinine Ratio 12.8 Glucose 131 H POC Glucose 172 H 114 H Calcium 8.4 L SARS-CoV-2, RNA, NAAT 12/03/22 Unknown Sodium Potassium Chloride Carbon Dioxide Anion Gap BUN Creatinine Est Cr Clr Drug Dosing Est GFR ( Amer) Est GFR (Non-Af Amer) BUN/Creatinine Ratio Glucose POC Glucose Calcium SARS-CoV-2, RNA, NAAT NEGATIVE PG Care Time/CCT Total # of Minutes Spent Total Time Spent with Patient: Total time spent is greater than 50% in coordination of care (as documented) at patient's floor/unit and/or counseling patient: Coding Level of Care Code 40312 IN/OBS CONSULT LVL 4,60M Diagnoses ESRD (end stage renal disease) on dialysis N18.6; Z99.2 Hypertension I10 Osteoarthritis of right knee M17.11
[2022-12-03] MEDS: INSULIN ASPART PER UNIT CHARGE SC SCH ×3 (12:27→22:04)
--- NOTE | 2022-12-03 13:16 | Pharmacy Report ---
Pharmacy Glycemic Short Note 2 - Date of Service December 03, 2022 - Glycemic Short BSG Results (Last 24 hours): 12/03/22 12/03/22 12/03/22 05:39 09:58 10:21 Glucose 131 H POC Glucose 172 H 114 H 12/03/22 12:26 Glucose POC Glucose 153 H OUTPATIENT ANTIDIABETIC REGIMEN: * Tresiba 20 units SC qAM, 50 units SC qPM * Patient's A1c = 6.4% (10/16/22) * However, this result is likely somewhat unreliable in ESRD patients d/t interactions between the A1c analyzing technique and high levels of urea in ESRD, reduced RBC life span, iron deficiency anemia, and EPO administration. HbA1c > 7.5% in ESRD patient may overestimate the extent of hyperglycemia in ESRD patients. ASSESSMENT: * WO is a 77 year old male POD #0 s/p right total knee arthroplasty * Received 8 mg PO dexamethasone perioperatively, no ongoing steroids ordered * Preop BSG of 172 mg/dL, postop BSG of 153 mg/dL * Pertinent PMH includes T2DM and ESRD on HD MWF (HD scheduled for tomorrow morning 12/04) * Will plan to use home insulin dose to estimate daily needs while inpatient, but divide basal to 50/50 basal/bolus split PLAN FOR INPATIENT GLYCEMIC CONTROL: * Basal insulin * Lantus 20 units SC x 1 postoperatively * Lantus 10-20 units SC x 1 this evening * Reassess in AM * Bolus insulin * NovoLog per scale ACHS or Q6hrs while NPO * Goal Range: Low 110 mg/dL - High 140 mg/dL * Correction Factor: 20 mg/dL/unit * Nutritional / Prandial insulin per carb ratio of 1 unit per 7 grams CHO consumed
[2022-12-03] MEDS: PANTOprazole 40 MG TAB PO SCH (13:27)
[2022-12-03] MEDS: CALCIUM CARBONATE 500 MG CHEWABLE TAB PO SCH (13:27)
[2022-12-03] MEDS: modafiniL 100 MG TAB PO SCH (13:56)
[2022-12-03 16:47] LABS: Hematocrit (blood only) 32.4 % (42.0-52.0); Hemoglobin 10.5 g/dl (14.0-18.0); Mean Corpuscular Hemoglobin 30.9 pg (25.0-34.0); Mean Corpuscular Hgb Conc 32.4 g/dL (32.0-36.0); Mean Corpuscular Volume 95.3 fL (80.0-100.0); Mean Platelet Volume 9.9 fL (9.4-12.4); Platelet Count 194 K/uL (130-400); RDW Standard Deviation 45.4 fL (36.4-46.3); White Blood Count 8.67 K/ul (4.8-10.8)
[2022-12-03 17:14] LABS: Basophils # (auto) 0.01 K/uL (0-0.2); Basophils % (auto) 0.1 %; Immature Granulocytes # (auto) 0.04 K/uL (0.01-0.20); Immature Granulocytes % (auto) 0.5 %; Lymphocytes % (auto) 5.8 %; Monocytes # (auto) 0.22 K/uL (0.11-0.59); Monocytes % (auto) 2.5 %; Neutrophils % (auto) 91.1 %
[2022-12-03 17:18] LABS: BUN Creatinine Ratio 11.6 (10-20); Calcium 8.7 mg/dl (8.5-10.1); Est GFR (African American) 6.4 ml/min; Est GFR (Non-African American) 5.5 ml/min; Potassium 4.5 mmol/L (3.5-5.1)
[2022-12-03] MEDS: ceFAZolin 2000MG 2,000 MG/15 ML SYR IV SCH (17:59)
[2022-12-03] MEDS: SODIUM BICARBONATE 650 MG TAB PO SCH (21:59)
[2022-12-03] MEDS: DOXAZosin MESYLATE 4 MG TAB PO SCH (21:59)
[2022-12-03] MEDS: ASPIRIN 81 MG ECTAB PO SCH (22:00)
[2022-12-03] MEDS: ADVANCED PROBIOTIC 1250 MG CAPSULE PO SCH (22:00)
[2022-12-04] MEDS: ceFAZolin 2000MG 2,000 MG/15 ML SYR IV SCH (01:20)
[2022-12-04] MEDS ORDERED: INSULIN ASPART PER UNIT CHARGE SC SCH (02:00)
[2022-12-04] MEDS: ACETAMINOPHEN 500 MG TAB PO SCH ×3 (06:16→20:43)
[2022-12-04 06:46] LABS: Hematocrit (blood only) 28.8 % (42.0-52.0); Hemoglobin 9.5 g/dl (14.0-18.0); Mean Corpuscular Hemoglobin 31.3 pg (25.0-34.0); Mean Corpuscular Volume 94.7 fL (80.0-100.0); Mean Platelet Volume 9.8 fL (9.4-12.4); Platelet Count 170 K/uL (130-400); RDW Standard Deviation 44.9 fL (36.4-46.3); Red Blood Count 3.04 M/uL (4.70-6.10); White Blood Count 9.63 K/ul (4.8-10.8)
[2022-12-04 07:16] LABS: BUN Creatinine Ratio 12.5 (10-20); Calcium 8.4 mg/dl (8.5-10.1); Creatinine Clr Calc Pharmacy 8.2 ml/min; Est GFR (African American) 6.5 ml/min; Est GFR (Non-African American) 5.6 ml/min; Potassium 4.5 mmol/L (3.5-5.1)
[2022-12-04] MEDS: ADVANCED PROBIOTIC 1250 MG CAPSULE PO SCH ×2 (08:14→20:43)
[2022-12-04] MEDS: SERTRALINE HCL 100 MG TABLET PO SCH (08:14)
[2022-12-04] MEDS: CHOLECALCIFEROL 1,000 UNITS 25 MCG TAB PO SCH (08:14)
[2022-12-04] MEDS: CALCIUM CARBONATE 500 MG CHEWABLE TAB PO SCH (08:14)
[2022-12-04] MEDS: MAGNESIUM OXIDE 400 MG TAB PO SCH (08:14)
[2022-12-04] MEDS: DULoxetine HCL 60 MG CAP PO SCH (08:14)
[2022-12-04] MEDS: ASPIRIN 81 MG ECTAB PO SCH ×2 (08:14→20:42)
[2022-12-04] MEDS: SODIUM BICARBONATE 650 MG TAB PO SCH ×2 (08:15→20:44)
--- NOTE | 2022-12-04 08:16 | Orthopedic Progress Note ---
Date of Service December 04, 2022 Assessment & Plan (1) Osteoarthritis of right knee: Plan: Pt is POD #1 from R TKA -Pain regime as written -DVT ppx with ASA 81mg BID, TEDs, and SCDs -PT/OT -Pt to get HD this morning and may be d/c afterwards if stable. Admission and Anticipated Discharge Date Admission Date: December 03, 2022 Subjective Pt is POD #1 from R TKA -Doing well this morning, sitting up in bed with no complaints -States pain is well controlled at this time -Prior to d/c today, he is scheduled for HD this morning after breakfast -Sees CP, SOB, abdominal pain, N/V Review of Systems Review of Systems: All systems reviewed & are unremarkable except as noted in Subjective Physical Exam Physical Exam: RLE with dressing and quinton wrap in place, able to wiggle toes without issue, good ROM of R ankle. Calf is nontender with palpation and compartments are soft. Able to flex and extend knee. Distal perfusion and sensation are grossly intact. Results & Data ([facility]) Vital Signs (Past 12 Hours) Vital Signs Temp Pulse Resp BP Pulse Ox O2 Del Method 12/04/22 07:22 35.9 C L 52 L 16 160/85 H 97 Room Air 12/04/22 03:01 36.6 C 50 L 18 141/75 H 96 Room Air 12/03/22 23:17 36.5 C 74 18 109/68 92 Room Air 12/03/22 23:09 36.3 C L 49 L 18 161/83 H 95 Room Air 12/03/22 22:08 Room Air Laboratory Results Laboratory Results WBC 9.63 K/ul (4.8-10.8) 12/04/22 06:14 RBC 3.04 M/uL (4.70-6.10) L 12/04/22 06:14 Hgb 9.5 g/dl (14.0-18.0) L 12/04/22 06:14 Hct 28.8 % (42.0-52.0) L 12/04/22 06:14 MCV 94.7 fL (80.0-100.0) 12/04/22 06:14 MCH 31.3 pg (25.0-34.0) 12/04/22 06:14 MCHC 33.0 g/dL (32.0-36.0) 12/04/22 06:14 RDW Std Deviation 44.9 fL (36.4-46.3) 12/04/22 06:14 RDW Coeff of Stephane 13.0 % (11.5-14.5) 12/04/22 06:14 Plt Count 170 K/uL (130-400) 12/04/22 06:14 MPV 9.8 fL (9.4-12.4) 12/04/22 06:14 Immature Gran % (Auto) 0.5 % 12/03/22 16:22 Neut % (Auto) 91.1 % 12/03/22 16:22 Lymph % (Auto) 5.8 % 12/03/22 16:22 Inyo % (Auto) 2.5 % 12/03/22 16:22 Eos % (Auto) 0.0 % 12/03/22 16:22 Baso % (Auto) 0.1 % 12/03/22 16:22 Neut # (Auto) 7.90 K/uL (1.40-6.50) H 12/03/22 16:22 Lymph # (Auto) 0.50 K/uL (1.2-3.4) L 12/03/22 16:22 Inyo # (Auto) 0.22 K/uL (0.11-0.59) 12/03/22 16:22 Eos # (Auto) 0.00 K/uL (0-0.50) 12/03/22 16:22 Baso # (Auto) 0.01 K/uL (0-0.2) 12/03/22 16:22 Immature Gran # (Auto) 0.04 K/uL (0.01-0.20) 12/03/22 16:22 Sodium 136 mmol/L (136-145) 12/04/22 06:14 Potassium 4.5 mmol/L (3.5-5.1) 12/04/22 06:14 Chloride 101 mmol/L (98-107) 12/04/22 06:14 Carbon Dioxide 22 mmol/L (21-32) 12/04/22 06:14 Anion Gap 13 (3-11) H 12/04/22 06:14 BUN 104 mg/dl (6-23) H 12/04/22 06:14 Creatinine 8.34 mg/dl (0.6-1.4) H* 12/04/22 06:14 Est Cr Clr Drug Dosing 8.2 ml/min 12/04/22 06:14 Est GFR ( Amer) 6.5 ml/min 12/04/22 06:14 Est GFR (Non-Af Amer) 5.6 ml/min 12/04/22 06:14 BUN/Creatinine Ratio 12.5 (10-20) 12/04/22 06:14 Glucose 114 mg/dl (70-99(Fasting)) H 12/04/22 06:14 POC Glucose 108 mg/dl (70-99) H 12/04/22 12:34 Calcium 8.4 mg/dl (8.5-10.1) L 12/04/22 06:14 Nasal Screen MRSA (PCR) Negative (Negative) 12/03/22 Unknown SARS-CoV-2, RNA, NAAT NEGATIVE (NEGATIVE) 12/03/22 Unknown Impressions
[2022-12-04] MEDS: modafiniL 100 MG TAB PO SCH ×2 (08:22→15:46)
[2022-12-04] MEDS ORDERED: IRON SUCROSE 100 MG in SYRINGE 0 ML IV ONE ×2 (08:24→11:15)
[2022-12-04] MEDS ORDERED: IRON SUCROSE 100 MG in 0.9 % SODIUM CHLORIDE 100 ML IV SCH (08:30)
[2022-12-04] MEDS: INSULIN ASPART PER UNIT CHARGE SC SCH ×4 (08:33→20:40)
--- NOTE | 2022-12-04 08:55 | Pharmacy Report ---
Pharmacy Glycemic Short Note 2 - Date of Service December 04, 2022 - Glycemic Short BSG Results (Last 24 hours): 12/03/22 12/03/22 12/03/22 09:58 10:21 12:26 Glucose 131 H POC Glucose 114 H 153 H 12/03/22 12/03/22 12/03/22 15:33 16:22 17:11 Glucose 182 H POC Glucose 180 H 164 H 12/03/22 12/04/22 12/04/22 20:28 02:02 06:14 Glucose 114 H POC Glucose 156 H 105 H 12/04/22 08:06 Glucose POC Glucose 111 H OUTPATIENT ANTIDIABETIC REGIMEN: * Tresiba 20 units SC qAM, 50 units SC qPM * Patient's A1c = 6.4% (10/16/22) * However, this result is likely somewhat unreliable in ESRD patients d/t interactions between the A1c analyzing technique and high levels of urea in ESRD, reduced RBC life span, iron deficiency anemia, and EPO administration. HbA1c > 7.5% in ESRD patient may overestimate the extent of hyperglycemia in ESRD patients. ASSESSMENT: 12/04/22: * BSGs reasonably well-controlled postoperatively, ranging 153-164 mg/dL * Fasting BSG of 111 mg/dL this morning * Received 49 units of insulin (including 20 units of basal reportedly given at home prior to surgery) * Hemodialysis scheduled for today, code stroke alert called during HD session (BSG of 108 mg/dL at that time) * Will slightly loosen Novolog this morning with no ongoing steroids and will decrease Lantus 12/03/22: * WO is a 77 year old male POD #0 s/p right total knee arthroplasty * Received 8 mg PO dexamethasone perioperatively, no ongoing steroids ordered * Preop BSG of 172 mg/dL, postop BSG of 153 mg/dL * Pertinent PMH includes T2DM and ESRD on HD MWF (HD scheduled for tomorrow morning 12/04) * Will plan to use home insulin dose to estimate daily needs while inpatient, but divide basal to 50/50 basal/bolus split PLAN FOR INPATIENT GLYCEMIC CONTROL: * Basal insulin * Lantus 10-15 units SC BID * Bolus insulin * NovoLog per scale ACHS or Q6hrs while NPO * Goal Range: Low 110 mg/dL - High 140 mg/dL * Correction Factor: 30 mg/dL/unit * Nutritional / Prandial insulin per carb ratio of 1 unit per 9 grams CHO consumed
[2022-12-04] MEDS ORDERED: LANTUS PER UNIT CHARGE SQ SCH ×2 (09:00→21:00)
--- NOTE | 2022-12-04 09:57 | Nephrology Progress Note ---
Date of Service December 04, 2022 Assessment & Plan (1) ESRD (end stage renal disease) on dialysis: Plan: Outpatient Rx MWF at [place] x 3.5 hours on 180 optiflux Qb 450, Qd 700; 2 K 2 calcium. EDW 79 kg. Orders for HD today entered into EHR and reviewed with HD RN. Patient was seen and evaluated during dialysis. He is tolerating treatment well. Well functioning RUE AVF with good thrill and bruit. Resume outpatient Rx tomorrow post discharge. Medications appropriate for kidney function. (2) Hypertension: Plan: BP acceptable. Continue home medications as Rx. (3) Osteoarthritis of right knee: Plan: POD#1 s/p R TKA by Dr. Whatley. No surgical or perioperative complications. Pain controlled. Anticipated DC home today. Admission and Anticipated Discharge Date Admission Date: December 03, 2022 Subjective No acute events overnight. Roni was resting comfortably in bed this AM. He was seen and evaluated during hemodialysis. No complications with treatment. Tolerating dialysis well. Review of Systems Review of Systems: All systems reviewed & are unremarkable except as noted in HPI & below Physical Exam Constitutional: well developed; no acute distress Eyes: no scleral abnormality and no corneal abnormality ENMT: Mouth: no oral mucosal abnormality and oral mucous membranes not dry Neck: normal visual inspection and trachea midline Respiratory: normal respiratory effort Auscultation: lungs clear to auscultation bilaterally Cardiovascular: Rate/Rhythm: regular rate Heart Sounds: normal S1, normal S2 and + murmur Extremities: + pedal edema and + AV fistula Musculoskeletal: Extremities: no cyanosis and no clubbing Skin: normal turgor; no lesions Neurologic: Motor/Sensory: no tremor and no asterixis Psychiatric: Orientation: alert and oriented x 3 Results & Data ([facility]) Vital Signs (Past 12 Hours) Vital Signs Temp Pulse Pulse Pulse Resp BP BP 12/04/22 09:30 54 L 132/73 12/04/22 09:02 55 L 132/59 L 12/04/22 08:51 36.4 C L 51 L 12/04/22 07:22 35.9 C L 52 L 16 160/85 H 12/04/22 03:01 36.6 C 50 L 18 141/75 H 12/03/22 23:17 36.5 C 74 18 109/68 12/03/22 23:09 36.3 C L 49 L 18 161/83 H 12/03/22 22:08 Pulse Ox O2 Del Method 12/04/22 09:30 12/04/22 09:02 12/04/22 08:51 12/04/22 07:22 97 Room Air 12/04/22 03:01 96 Room Air 12/03/22 23:17 92 Room Air 12/03/22 23:09 95 Room Air 12/03/22 22:08 Room Air Laboratory Results Laboratory Results - last 24 hr 12/03/22 12/03/22 12/03/22 09:58 10:21 12:26 WBC RBC Hgb Hct MCV MCH MCHC RDW Std Deviation RDW Coeff of Stephane Plt Count MPV Immature Gran % (Auto) Neut % (Auto) Lymph % (Auto) Castro % (Auto) Eos % (Auto) Baso % (Auto) Neut # (Auto) Lymph # (Auto) Castro # (Auto) Eos # (Auto) Baso # (Auto) Immature Gran # (Auto) Sodium 139 Potassium 4.3 Chloride 105 Carbon Dioxide 25 Anion Gap 9 BUN 96 H Creatinine 7.50 H* Est Cr Clr Drug Dosing 9.1 Est GFR ( Amer) 7.4 Est GFR (Non-Af Amer) 6.4 BUN/Creatinine Ratio 12.8 Glucose 131 H POC Glucose 114 H 153 H Calcium 8.4 L Nasal Screen MRSA (PCR) 12/03/22 12/03/22 12/03/22 15:33 16:22 16:22 WBC 8.67 RBC 3.40 L Hgb 10.5 L Hct 32.4 L MCV 95.3 MCH 30.9 MCHC 32.4 RDW Std Deviation 45.4 RDW Coeff of Stephane 13.0 Plt Count 194 MPV 9.9 Immature Gran % (Auto) 0.5 Neut % (Auto) 91.1 Lymph % (Auto) 5.8 Castro % (Auto) 2.5 Eos % (Auto) 0.0 Baso % (Auto) 0.1 Neut # (Auto) 7.90 H Lymph # (Auto) 0.50 L Castro # (Auto) 0.22 Eos # (Auto) 0.00 Baso # (Auto) 0.01 Immature Gran # (Auto) 0.04 Sodium 135 L Potassium 4.5 Chloride 101 Carbon Dioxide 24 Anion Gap 10 BUN 98 H Creatinine 8.47 H* D Est Cr Clr Drug Dosing 8.0 Est GFR ( Amer) 6.4 Est GFR (Non-Af Amer) 5.5 BUN/Creatinine Ratio 11.6 Glucose 182 H POC Glucose 180 H Calcium 8.7 Nasal Screen MRSA (PCR) 12/03/22 12/03/22 12/03/22 17:11 20:28 Unknown WBC RBC Hgb Hct MCV MCH MCHC RDW Std Deviation RDW Coeff of Stephane Plt Count MPV Immature Gran % (Auto) Neut % (Auto) Lymph % (Auto) Castro % (Auto) Eos % (Auto) Baso % (Auto) Neut # (Auto) Lymph # (Auto) Castro # (Auto) Eos # (Auto) Baso # (Auto) Immature Gran # (Auto) Sodium Potassium Chloride Carbon Dioxide Anion Gap BUN Creatinine Est Cr Clr Drug Dosing Est GFR ( Amer) Est GFR (Non-Af Amer) BUN/Creatinine Ratio Glucose POC Glucose 164 H 156 H Calcium Nasal Screen MRSA (PCR) Negative 12/04/22 12/04/22 12/04/22 02:02 06:14 06:14 WBC 9.63 RBC 3.04 L Hgb 9.5 L Hct 28.8 L MCV 94.7 MCH 31.3 MCHC 33.0 RDW Std Deviation 44.9 RDW Coeff of Stephane 13.0 Plt Count 170 MPV 9.8 Immature Gran % (Auto) Neut % (Auto) Lymph % (Auto) Castro % (Auto) Eos % (Auto) Baso % (Auto) Neut # (Auto) Lymph # (Auto) Castro # (Auto) Eos # (Auto) Baso # (Auto) Immature Gran # (Auto) Sodium 136 Potassium 4.5 Chloride 101 Carbon Dioxide 22 Anion Gap 13 H BUN 104 H Creatinine 8.34 H* Est Cr Clr Drug Dosing 8.2 Est GFR ( Amer) 6.5 Est GFR (Non-Af Amer) 5.6 BUN/Creatinine Ratio 12.5 Glucose 114 H POC Glucose 105 H Calcium 8.4 L Nasal Screen MRSA (PCR) 12/04/22 08:06 WBC RBC Hgb Hct MCV MCH MCHC RDW Std Deviation RDW Coeff of Stephane Plt Count MPV Immature Gran % (Auto) Neut % (Auto) Lymph % (Auto) Castro % (Auto) Eos % (Auto) Baso % (Auto) Neut # (Auto) Lymph # (Auto) Castro # (Auto) Eos # (Auto) Baso # (Auto) Immature Gran # (Auto) Sodium Potassium Chloride Carbon Dioxide Anion Gap BUN Creatinine Est Cr Clr Drug Dosing Est GFR ( Amer) Est GFR (Non-Af Amer) BUN/Creatinine Ratio Glucose POC Glucose 111 H Calcium Nasal Screen MRSA (PCR) PG Care Time/CCT Total # of Minutes Spent Total Time Spent with Patient: Total time spent is greater than 50% in coordination of care (as documented) at patient's floor/unit and/or counseling patient: Coding Level of Care Code 53791 SUB INP/OBS CARE 3/50MIN Diagnoses ESRD (end stage renal disease) on dialysis N18.6; Z99.2 Hypertension I10 Osteoarthritis of right knee M17.11
[2022-12-04] MEDS ORDERED: OPTIRAY 320 500ml IV ONE (13:01)
--- NOTE | 2022-12-04 13:11 | CT Scan Report ---
CT SCAN OF THE BRAIN WITHOUT IV CONTRAST CLINICAL HISTORY: Strokelike symptoms. Change in mental status. Weakness. COMPARISON STUDY: No priors. TECHNIQUE: Unenhanced axial CT scan of the brain is performed from the vertex to the skull base. A do se lowering technique was utilized adhering to the principles of ALARA. FINDINGS: Brain parenchyma: There is age-related involutional change noting mild subcortical and periventricula r microangiopathic disease. There is no hemorrhage, mass effect, or evidence of acute territorial isc hemia by CT criteria. Small chronic lacunar infarcts are noted in the left basal ganglia. Amado-white matter differentiation is preserved. No extra-axial fluid collection is seen. Ventricles, sulci, cisterns: Prominent secondary to involutional change. Intracranial vasculature: There is atherosclerotic calcification of the cavernous carotid and vertebr al arteries. Calvarium: Unremarkable. Sinuses and mastoids: There is mild mucosal thickening within the maxillary antra and frontal sinuses . The remaining paranasal sinuses are clear. The mastoid air cells are well pneumatized. Orbits: The bony orbits are grossly intact. There are bilateral ocular lens implants. IMPRESSION: There is no hemorrhage, mass effect, or evidence of acute territorial ischemia by CT rocio love. ACT 112: Negative or not required by law. Electronically signed by: Balwinder Pan M.D. 12/04/2022 1:10 PM
--- NOTE | 2022-12-04 13:40 | CT Scan Report ---
CT ANGIOGRAM OF THE BRAIN; CT ANGIOGRAM OF THE NECK CLINICAL HISTORY: Strokelike symptoms. Change in mental status. Weakness. COMPARISON STUDY: Unenhanced CT of the brain performed the same day 12/04/2022. TECHNIQUE: Following the IV administration of 110 of Optiray 350, CT angiogram of the head and neck w as performed from the aortic arch to the vertex. Images are reviewed in the axial, sagittal, and chandni nal planes. 3-D MIPS images are created and assessed. IV contrast was administered without complicati on. All measurements were calculated based on NASCET criteria. A dose lowering technique was utilize d adhering to the principles of ALARA. FINDINGS: Brain parenchyma: There is age-related involutional change noting mild subcortical and periventricula r microangiopathic disease. Small chronic lacunar infarcts are noted in the left basal ganglia. There is no evidence of hemorrhage, mass effect, or acute territorial ischemia noting angiographic phase t echnique. There is no evidence of enhancing mass lesion on the angiogram phase images. The ventricles , sulci, and cisterns are prominent secondary to involutional change. Amado-white matter differentiati on is preserved. No extra-axial fluid collection is seen. Thoracic aorta: There is atherosclerotic calcification of the thoracic aorta. Visualized portions of the thoracic aorta are normal in caliber. The aortic arch demonstrates bovine variant anatomy. Right carotid arterial system: The right common carotid artery is widely patent, as are the right int ernal and external carotid arteries. Left carotid arterial system: The left common carotid artery is widely patent, as are the left inclusion internship al and external carotid arteries. Minimal plaque is seen in the carotid bulb. Vertebral arteries: There is at least mild stenosis of the origin of the right vertebral artery. The vertebral arteries are otherwise widely patent bilaterally and codominant. Subclavian arteries: Widely patent bilaterally. Intracranial vasculature: There is atherosclerotic calcification of the cavernous carotid and vertebr al arteries. The internal carotid arteries are patent at the skull base, as are the anterior and midd le cerebral arteries bilaterally. The vertebrobasilar system and posterior cerebral arteries are wide ly patent. There is origin of the left posterior shoulder blurring. The vertebral arteries are codominant. There is no aneurysm, high-grade stenosis, or focal vessel cut off seen throughout the in tracranial circulation. Jugular veins: Patent bilaterally. Dural sinuses: Patent. Lung apices: Partially visualized upper lobe lung parenchyma appears clear. Soft tissues: The visualized pharyngeal soft tissues are normal in appearance noting angiographic pha se technique. The oropharyngeal airway appears widely patent. The salivary and thyroid glands are nor mal in appearance. No cervical lymphadenopathy is seen. Skeletal structures: The skeletal structures are osteopenic. The calvarium appears intact. The cervic al spine is maintained noting advanced multilevel spondylosis. No lytic or blastic lesion is seen. Orbits: The bony orbits are intact. Orbital contents are normal as visualized noting bilateral ocular lens implants. Sinuses and mastoids: There is mild mucosal thickening within the frontal and maxillary sinuses. The remaining paranasal sinuses are clear. The mastoid air cells are well pneumatized. IMPRESSION: 1. There is no evidence of hemorrhage, mass effect, or acute territorial ischemia noting angiographic phase technique. 2. Unremarkable CT angiogram of the brain. 3. There is at least mild stenosis at the origin of the right vertebral artery. 4. Otherwise unremarkable CT angiogram of the neck. ACT 112: Negative or not required by law. Electronically signed by: Balwinder Pan M.D. 12/04/2022 1:38 PM
--- NOTE | 2022-12-04 14:38 | Neurology Consultation ---
Date of Consultation December 04, 2022 Assessment & Plan (1) Hypotension: Plan NEUROLOGY CONSULTATION Assessment & Plan: Impression: pt likely hypotensive related neurological symptoms that is now resolved. negative CTA head/neck and CT head. clinically reassuring exam with no focal deficits. Recommendations: -i do not see need for further testing at this point. avoid hypotension. not much to add from neurology call again if new question. Dr. Teto Elaine MD [facility] Neurology Chief Complaint: hypotension History of Present Illness: pt with episode of hypotension and ?face droop and confusion during HD. pt now back to baseline and CT head and CTA head/neck negative. pt doing well clinically and asymptomatic. chart reviewed. Past Medical History: See chart Meds: See chart I personally reviewed all of the medications Social & Family History: See chart Review of Systems: Per initial HPI on admission. Physical Exam: GEN: NAD HEENT: Normocephalic Neuro: Mental status:A & O x 3.No dysarthria or aphasia.No neglect. Fluent speech. No apraxia Cranial Nerves:II-XII intact Motor:Normal bulk and tone,5/5 strength x 4 extremities Coordination:Intact Reflexes: down going toes josé Sensation: Intact x 4 extremities to touch Chart reviewed I have spent more than 50% educating patient about potential diagnosis and neurological evaluation and coordinating care with patient's treatment team. Total time spent (including chart review and coordination of care): 80 min (this includes chart review). History of Present Illness Attending Physician: Roni Whatley MD Allergies Allergy/AdvReac Type Severity Reaction Status Date / Time Penicillins Allergy Severe TONGUE Verified 12/03/22 05:43 SWELLING Home Medications Medication Instructions Recorded Confirmed Type Lactobacillus acidophilus 10 mg PO BID 10/10/22 12/03/22 History calcium carbonate 200 mg calcium 200 mg PO UD 10/10/22 12/03/22 History (500 mg) chewable tablet (Tums) calcium polycarbophil 625 mg 625 mg PO UD PRN Diarrhea 10/10/22 12/03/22 History tablet (Fiber (calcium polycarbophil)) cholecalciferol (vitamin D3) 50 50 mcg PO DAILY 10/10/22 12/03/22 History mcg (2,000 unit) tablet (Vitamin D3) doxazosin 8 mg tablet 8 mg PO HS 10/10/22 12/03/22 History duloxetine 60 mg capsule,delayed 60 mg PO QAM 10/10/22 12/03/22 History release febuxostat 40 mg tablet 40 mg PO QAM 10/10/22 12/03/22 History insulin degludec 100 unit/mL (3 1 unit subcut UD 10/10/22 12/03/22 History mL) subcutaneous pen (Tresiba FlexTouch U-100 insulin) magnesium oxide 400 mg PO QAM 10/10/22 12/03/22 History modafinil 200 mg tablet 200 mg PO BID 10/10/22 12/03/22 History pantoprazole 40 mg tablet,delayed 40 mg PO Q2D 10/10/22 12/03/22 History release sertraline 100 mg tablet 100 mg PO QAM 10/10/22 12/03/22 History sodium bicarbonate 650 mg tablet 650 mg PO BID 10/10/22 12/03/22 History tramadol 50 mg tablet 50 mg PO Q6H PRN Pain 10/10/22 12/03/22 History atenolol 25 mg tablet 12.5 mg PO DIRECTED 12/03/22 12/03/22 History acetaminophen 500 mg tablet 1,000 mg PO Q8 14 days #84 tabs 12/04/22 Rx (Tylenol Extra Strength) aspirin 81 mg tablet,delayed 81 mg PO BID 30 days #60 tabs 12/04/22 Rx release oxycodone 5 mg tablet 5 - 10 mg PO Q4H PRN pain 4 days 12/04/22 Rx #14 tabs Patient History Medical History (Updated 12/04/22 @ 14:38 by Teto Elaine MD) AV fistula RT BPH (benign prostatic hyperplasia) Depression Diabetes mellitus, type 2 IDDM Dialysis patient STARTED 10/24/20>[facility] MWF GERD (gastroesophageal reflux disease) controlled, stable per pt Hearing loss wears bilat hearing aids History of kidney stones Hx of gout Hypertension variable, per pt Mini stroke 10+ YEARS AGO>NO CURRENT PROBLEMS FROM EVENT Narcolepsy Peripheral neuropathy Sleep apnea NO DEVICE USED Surgical History H/O inguinal hernia repair AN H/O prostate biopsy benign H/O vascular surgery STENT PRESENT IN FISTULA History of appendectomy History of cataract surgery RT/LEFT History of colonoscopy History of esophagogastroduodenoscopy (EGD) History of lithotripsy History of repair of rotator cuff LEFT History of tonsillectomy and adenoidectomy Family History Other No family history of adverse response to anesthesia Social History Smoking Status: Never smoker Second Hand Exposure: No; Do You Dip or Chew Tobacco: No; Hx Alcohol Use: Yes Alcohol type: beer and wine Preferred Language: Slovak Communication Ability: Effective 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: No Current Living Situation: Spouse Feels Safe at Home: Yes Safety Concerns: Feels Safe At This Time Assistive Devices: Walker Assistive Devices Comment: READING GLASSES Results & Data ([facility]) Vital Signs (Past 12 Hours) Vital Signs Temp Pulse Pulse Pulse Resp BP BP 12/04/22 12:25 36.5 C 57 L 120/70 12/04/22 12:00 42 L 81/56 L 12/04/22 11:30 62 92/65 L 12/04/22 11:00 53 L 92/48 L 12/04/22 10:30 52 L 82/46 L 12/04/22 10:00 51 L 97/56 L 12/04/22 09:30 54 L 132/73 12/04/22 09:02 55 L 132/59 L 12/04/22 08:51 36.4 C L 51 L 12/04/22 07:22 35.9 C L 52 L 16 160/85 H 12/04/22 03:01 36.6 C 50 L 18 141/75 H Pulse Ox O2 Del Method 12/04/22 12:25 12/04/22 12:00 12/04/22 11:30 12/04/22 11:00 12/04/22 10:30 12/04/22 10:00 12/04/22 09:30 12/04/22 09:02 12/04/22 08:51 12/04/22 07:22 97 Room Air 12/04/22 03:01 96 Room Air
--- NOTE | 2022-12-04 14:53 | Hospitalist Progress Note ---
Date of Service December 04, 2022 Assessment & Plan (1) Osteoarthritis of right knee: Plan: s/p Right Total Knee Arthroplasty(Right) - Roni Whatley MD. EBL 5cc Pain control/bowel regimen/PT/OT per primary service ASA 81mg BID for DVT prophylaxis ordered Called pharmacy to give dose modafinil now -- takes in AM and 2-3pm in afternoon. Ordered for 9a/9pm for his narcolepsy Follows with Dr Velarde for HD [phone], M/W/F -- S/P Dialysis today with Dr Barahona Monitor labs on repeat (2) ESRD (end stage renal disease) on dialysis: Plan: ESRD on HD M/W/ Nephrology consulted - s/p dialysis today 12/04/22 Continue usual meds/sodium bicarb, PPI ordered (3) Hypertension: Plan: BP stable Takes atenolol on non-HD days -- BP currently 138/63 Had hypotension during dialysis in the 80s Monitor BP (4) Diabetes mellitus, type 2: Plan: On Tresiba at home Pharmacy consulted for glycemic management (5) Narcolepsy: Plan: hx such, on modafinil 200mg BID arousable/alert but sleepy post-op --- did not take his dose this morning --> called pharmacy for dose now--> changed schedule for AM and between 2-3pm as takes at home (6) GERD (gastroesophageal reflux disease): Plan: on PPI Q2D -- scheduled for today but can hold if needed/going to HD (7) Sleep apnea: Plan: does not have device, doesn't use at baseline f/u Pcp (8) Hypotension: Plan: - Hypotensive today during dialysis and systolic BP in 80s - Stroke alert was called in dialysis for ?facial droop and aphasia - CT head and CTA head and neck were negative - Neurology consult placed and felt likely had hypotensive related neurologic symptoms that 100% resolved with no focal deficits. Plan Thank you for allowing hospitalist service to participate in the care of Mr Tariq. Hospitalist service will follow along. Please call with any questions/concerns. Likely to be discharged in the AM and to take patient to regular dialysis appointment already set up at [facility] and Anticipated Discharge Date Admission Date: December 03, 2022 Subjective Patient was seen today in dialysis after a stroke alert was called. Patient apparently had low BPs while in dialysis in the 80s and after full session of dialysis nursing noted a possible right sided facial droop and patient had some word salad. By the time I saw patient in dialysis he had some slight aphasia and was being taken to CT. After CT scan neuro exam was improved with no ob vious deficits. A neurology consult was placed. Review of Systems Review of Systems: All ROS negative unless stated + above or below Cardiovascular: no chest pain, no dyspnea, no syncope and no calf pain Neurologic: Patient had some aphasia after dialysis but all symptoms have resolved and he has no obvious complaints or deficits. Physical Exam Constitutional: WD/WN, vitals as above Eyes: PERRL, conjunctivae normal, anicteric sclerae Neck: trachea midline, no thyromegaly Respiratory: normal respiratory effort, lungs clear to auscultation Cardiovascular: RRR, no murmur, no edema Gastrointestinal (Abdomen): normal bowel sounds, soft, nontender, no hepatosplenomegaly Neurologic: patellar DTR's 2+ bilat, sensation intact and PERRL, EOMI, accommodation nl, no face palsy, no dysarthria Psychiatric: A+Ox3, euthymic affect Results & Data Results & Data ([facility]) Vital Signs (Past 12 Hours) Vital Signs Temp Pulse Pulse Pulse Resp BP BP 12/04/22 12:25 36.5 C 57 L 120/70 12/04/22 12:00 42 L 81/56 L 12/04/22 11:30 62 92/65 L 12/04/22 11:00 53 L 92/48 L 12/04/22 10:30 52 L 82/46 L 12/04/22 10:00 51 L 97/56 L 12/04/22 09:30 54 L 132/73 12/04/22 09:02 55 L 132/59 L 12/04/22 08:51 36.4 C L 51 L 12/04/22 07:22 35.9 C L 52 L 16 160/85 H 12/04/22 03:01 36.6 C 50 L 18 141/75 H Pulse Ox O2 Del Method 12/04/22 12:25 12/04/22 12:00 12/04/22 11:30 12/04/22 11:00 12/04/22 10:30 12/04/22 10:00 12/04/22 09:30 12/04/22 09:02 12/04/22 08:51 12/04/22 07:22 97 Room Air 12/04/22 03:01 96 Room Air Laboratory Results Abnormal lab results 12/03/22 12/03/22 12/03/22 Range/Units 16:22 16:22 17:11 RBC 3.40 L (4.70-6.10) M/uL Hgb 10.5 L (14.0-18.0) g/dl Hct 32.4 L (42.0-52.0) % Neut # (Auto) 7.90 H (1.40-6.50) K/uL Lymph # (Auto) 0.50 L (1.2-3.4) K/uL Sodium 135 L (136-145) mmol/L Anion Gap (3-11) BUN 98 H (6-23) mg/dl Creatinine 8.47 H* D (0.6-1.4) mg/dl Glucose 182 H (70-99(Fasting)) mg/dl POC Glucose 164 H (70-99) mg/dl Calcium (8.5-10.1) mg/dl 12/03/22 12/04/22 12/04/22 Range/Units 20:28 02:02 06:14 RBC 3.04 L (4.70-6.10) M/uL Hgb 9.5 L (14.0-18.0) g/dl Hct 28.8 L (42.0-52.0) % Neut # (Auto) (1.40-6.50) K/uL Lymph # (Auto) (1.2-3.4) K/uL Sodium (136-145) mmol/L Anion Gap (3-11) BUN (6-23) mg/dl Creatinine (0.6-1.4) mg/dl Glucose (70-99(Fasting)) mg/dl POC Glucose 156 H 105 H (70-99) mg/dl Calcium (8.5-10.1) mg/dl 12/04/22 12/04/22 12/04/22 Range/Units 06:14 08:06 12:34 RBC (4.70-6.10) M/uL Hgb (14.0-18.0) g/dl Hct (42.0-52.0) % Neut # (Auto) (1.40-6.50) K/uL Lymph # (Auto) (1.2-3.4) K/uL Sodium (136-145) mmol/L Anion Gap 13 H (3-11) BUN 104 H (6-23) mg/dl Creatinine 8.34 H* (0.6-1.4) mg/dl Glucose 114 H (70-99(Fasting)) mg/dl POC Glucose 111 H 108 H (70-99) mg/dl Calcium 8.4 L (8.5-10.1) mg/dl 12/04/22 Range/Units 15:59 RBC (4.70-6.10) M/uL Hgb (14.0-18.0) g/dl Hct (42.0-52.0) % Neut # (Auto) (1.40-6.50) K/uL Lymph # (Auto) (1.2-3.4) K/uL Sodium (136-145) mmol/L Anion Gap (3-11) BUN (6-23) mg/dl Creatinine (0.6-1.4) mg/dl Glucose (70-99(Fasting)) mg/dl POC Glucose 111 H (70-99) mg/dl Calcium (8.5-10.1) mg/dl Diagnostic Findings Head CT 12/04/22 12:55 CT SCAN OF THE BRAIN WITHOUT IV CONTRAST CLINICAL HISTORY: Strokelike symptoms. Change in mental status. Weakness. COMPARISON STUDY: No priors. TECHNIQUE: Unenhanced axial CT scan of the brain is performed from the vertex to the skull base. A dose lowering technique was utilized adhering to the principles of ALARA. FINDINGS: Brain parenchyma: There is age-related involutional change noting mild subcortical and periventricular microangiopathic disease. There is no hemorrhage, mass effect, or evidence of acute territorial ischemia by CT criteria. Small chronic lacunar infarcts are noted in the left basal ganglia. Amado-white matter differentiation is preserved. No extra-axial fluid collection is seen. Ventricles, sulci, cisterns: Prominent secondary to involutional change. Intracranial vasculature: There is atherosclerotic calcification of the cavernous carotid and vertebral arteries. Calvarium: Unremarkable. Sinuses and mastoids: There is mild mucosal thickening within the maxillary antra and frontal sinuses. The remaining paranasal sinuses are clear. The mastoid air cells are well pneumatized. Orbits: The bony orbits are grossly intact. There are bilateral ocular lens implants. IMPRESSION: There is no hemorrhage, mass effect, or evidence of acute territorial ischemia by CT criteria. ACT 112: Negative or not required by law. Electronically signed by: Balwinder Pan M.D. 12/04/2022 1:10 PM Head CTA 12/04/22 12:55 CT ANGIOGRAM OF THE BRAIN; CT ANGIOGRAM OF THE NECK CLINICAL HISTORY: Strokelike symptoms. Change in mental status. Weakness. COMPARISON STUDY: Unenhanced CT of the brain performed the same day 12/04/2022. TECHNIQUE: Following the IV administration of 110 of Optiray 350, CT angiogram of the head and neck was performed from the aortic arch to the vertex. Images are reviewed in the axial, sagittal, and coronal planes. 3-D MIPS images are created and assessed. IV contrast was administered without complication. All measurements were calculated based on NASCET criteria. A dose lowering technique was utilized adhering to the principles of ALARA. FINDINGS: Brain parenchyma: There is age-related involutional change noting mild subcorti mookie and periventricular microangiopathic disease. Small chronic lacunar infarcts are noted in the left basal ganglia. There is no evidence of hemorrhage, mass effect, or acute territorial ischemia noting angiographic phase technique. There is no evidence of enhancing mass lesion on the angiogram phase images. The ventricles, sulci, and cisterns are prominent secondary to involutional change. Amado-white matter differentiation is preserved. No extra-axial fluid collection is seen. Thoracic aorta: There is atherosclerotic calcification of the thoracic aorta. Visualized portions of the thoracic aorta are normal in caliber. The aortic arch demonstrates bovine variant anatomy. Right carotid arterial system: The right common carotid artery is widely patent, as are the right internal and external carotid arteries. Left carotid arterial system: The left common carotid artery is widely patent, as are the left internal and external carotid arteries. Minimal plaque is seen in the carotid bulb. Vertebral arteries: There is at least mild stenosis of the origin of the right vertebral artery. The vertebral arteries are otherwise widely patent bilaterally and codominant. Subclavian arteries: Widely patent bilaterally. Intracranial vasculature: There is atherosclerotic calcification of the cavernous carotid and vertebral arteries. The internal carotid arteries are patent at the skull base, as are the anterior and middle cerebral arteries bilaterally. The vertebrobasilar system and posterior cerebral arteries are widely patent. There is origin of the left posterior shoulder blurring. The vertebral arteries are codominant. There is no aneurysm, high-grade stenosis, or focal vessel cut off seen throughout the intracranial circulation. Jugular veins: Patent bilaterally. Dural sinuses: Patent. Lung apices: Partially visualized upper lobe lung parenchyma appears clear. Soft tissues: The visualized pharyngeal soft tissues are normal in appearance noting angiographic phase technique. The oropharyngeal airway appears widely patent. The salivary and thyroid glands are normal in appearance. No cervical lymphadenopathy is seen. Skeletal structures: The skeletal structures are osteopenic. The calvarium appears intact. The cervical spine is maintained noting advanced multilevel spondylosis. No lytic or blastic lesion is seen. Orbits: The bony orbits are intact. Orbital contents are normal as visualized noting bilateral ocular lens implants. Sinuses and mastoids: There is mild mucosal thickening within the frontal and maxillary sinuses. The remaining paranasal sinuses are clear. The mastoid air cells are well pneumatized. IMPRESSION: 1. There is no evidence of hemorrhage, mass effect, or acute territorial ischemia noting angiographic phase technique. 2. Unremarkable CT angiogram of the brain. 3. There is at least mild stenosis at the origin of the right vertebral artery. 4. Otherwise unremarkable CT angiogram of the neck. ACT 112: Negative or not required by law. Electronically signed by: Balwinder Pan M.D. 12/04/2022 1:38 PM Neck CTA 12/04/22 12:55 CT ANGIOGRAM OF THE BRAIN; CT ANGIOGRAM OF THE NECK CLINICAL HISTORY: Strokelike symptoms. Change in mental status. Weakness. COMPARISON STUDY: Unenhanced CT of the brain performed the same day 12/04/2022. TECHNIQUE: Following the IV administration of 110 of Optiray 350, CT angiogram of the head and neck was performed from the aortic arch to the vertex. Images are reviewed in the axial, sagittal, and coronal planes. 3-D MIPS images are created and assessed. IV contrast was administered without complication. All measurements were calculated based on NASCET criteria. A dose lowering technique was utilized adhering to the principles of ALARA. FINDINGS: Brain parenchyma: There is age-related involutional change noting mild subcortical and periventricular microangiopathic disease. Small chronic lacunar infarcts are noted in the left basal ganglia. There is no evidence of hemorrhage, mass effect, or acute territorial ischemia noting angiographic phase technique. There is no evidence of enhancing mass lesion on the angiogram phase images. The ventricles, sulci, and cisterns are prominent secondary to involutional change. Amado-white matter differentiation is preserved. No extra- axial fluid collection is seen. Thoracic aorta: There is atherosclerotic calcification of the thoracic aorta. Visualized portions of the thoracic aorta are normal in caliber. The aortic arch demonstrates bovine variant anatomy. Right carotid arterial system: The right common carotid artery is widely patent, as are the right internal and external carotid arteries. Left carotid arterial system: The left common carotid artery is widely patent, as are the left internal and external carotid arteries. Minimal plaque is seen in the carotid bulb. Vertebral arteries: There is at least mild stenosis of the origin of the right vertebral artery. The vertebral arteries are otherwise widely patent bilaterally and codominant. Subclavian arteries: Widely patent bilaterally. Intracranial vasculature: There is atherosclerotic calcification of the cavernous carotid and vertebral arteries. The internal carotid arteries are patent at the skull base, as are the anterior and middle cerebral arteries bilaterally. The vertebrobasilar system and posterior cerebral arteries are widely patent. There is origin of the left posterior shoulder blurring. The vertebral arteries are codominant. There is no aneurysm, high-grade stenosis, or focal vessel cut off seen throughout the intracranial circulation. Jugular veins: Patent bilaterally. Dural sinuses: Patent. Lung apices: Partially visualized upper lobe lung parenchyma appears clear. Soft tissues: The visualized pharyngeal soft tissues are normal in appearance noting angiographic phase technique. The oropharyngeal airway appears widely patent. The salivary and thyroid glands are normal in appearance. No cervical lymphadenopathy is seen. Skeletal structures: The skeletal structures are osteopenic. The calvarium appears intact. The cervical spine is maintained noting advanced multilevel spondylosis. No lytic or blastic lesion is seen. Orbits: The bony orbits are intact. Orbital contents are normal as visualized noting bilateral ocular lens implants. Sinuses and mastoids: There is mild mucosal thickening within the frontal and maxillary sinuses. The remaining paranasal sinuses are clear. The mastoid air cells are well pneumatized. IMPRESSION: 1. There is no evidence of hemorrhage, mass effect, or acute territorial ischemia noting angiographic phase technique. 2. Unremarkable CT angiogram of the brain. 3. There is at least mild stenosis at the origin of the right vertebral artery. 4. Otherwise unremarkable CT angiogram of the neck. ACT 112: Negative or not required by law. Electronically signed by: Balwinder Pan M.D. 12/04/2022 1:38 PM PG Care Time/CCT Total # of Minutes Spent Total Time Spent with Patient: Total time spent is greater than 50% in coordination of care (as documented) at patient's floor/unit and/or counseling patient: Coding Level of Care Code 14978 SUB INP/OBS CARE 3/50MIN Diagnoses Osteoarthritis of right knee M17.11 ESRD (end stage renal disease) on dialysis N18.6; Z99.2 Hypertension I10 Diabetes mellitus, type 2 E11.9 Narcolepsy G47.419 GERD (gastroesophageal reflux disease) K21.9 Sleep apnea G47.30 Hypotension I95.9
[2022-12-04] MEDS: DOXAZosin MESYLATE 4 MG TAB PO SCH (20:42)
[2022-12-05] MEDS: ACETAMINOPHEN 500 MG TAB PO SCH (05:20)
--- NOTE | 2022-12-05 07:15 | Orthopedic Progress Note ---
Date of Service December 05, 2022 Assessment & Plan (1) Osteoarthritis of right knee: Plan: Pt is POD #2 from R TKA -Pain regime as written -PT/OT -DVT ppx with ASA 81mg BID, TEDs, SCDs -If pt cleared by medicine and neurology he may be d/c first this morning. He is scheduled for HD at [facility] this morning at 10am. Admission and Anticipated Discharge Date Admission Date: December 04, 2022 Subjective Pt is POD #2 from R TKA -Pt doing well this morning, resting in bed at time of exam. -Yesterday pt had HD and became hypotensive with SBPs in the 80s, he also had a question of a facial droop and aphasia and a stroke alert was called. Neurology was consulted and the pt underwent CT head and CTA of the head and neck which were negative. -Pt's symptoms have completely resolved at this time and is appropriate. -Does complain of more knee pain today, however his pain is still controlled with current regime. -Denies CP, SOB, abdominal pain, N/V Review of Systems Review of Systems: All systems reviewed & are unremarkable except as noted in Subjective Physical Exam Physical Exam: RLE with dressing and quinton wrap in place. Able to wiggle toes without issue, good ROM of R ankle. Calf is nontender and compartments are soft. Able to flex and extend knee. Distal perfusion and sensation are grossly intact. Results & Data ([facility]) Vital Signs (Past 12 Hours) Vital Signs Temp Pulse Pulse Resp BP Pulse Ox O2 Del Method 12/05/22 03:42 36.9 C 53 L 20 139/67 93 Room Air 12/04/22 22:04 56 L 12/04/22 23:25 36.8 C 54 L 20 129/70 95 Room Air 12/04/22 19:41 36.8 C 52 L 20 117/65 92 Room Air
[2022-12-05] MEDS: CHOLECALCIFEROL 1,000 UNITS 25 MCG TAB PO SCH (07:35)
[2022-12-05] MEDS: MAGNESIUM OXIDE 400 MG TAB PO SCH (07:35)
[2022-12-05] MEDS: ADVANCED PROBIOTIC 1250 MG CAPSULE PO SCH (07:35)
[2022-12-05] MEDS: ASPIRIN 81 MG ECTAB PO SCH (07:35)
[2022-12-05] MEDS: SODIUM BICARBONATE 650 MG TAB PO SCH (07:36)
[2022-12-05] MEDS: DULoxetine HCL 60 MG CAP PO SCH (07:36)
[2022-12-05] MEDS: PANTOprazole 40 MG TAB PO SCH (07:36)
[2022-12-05] MEDS: SERTRALINE HCL 100 MG TABLET PO SCH (07:36)
--- NOTE | 2022-12-05 07:41 | Hospitalist Progress Note ---
Date of Service December 05, 2022 Assessment & Plan (1) Osteoarthritis of right knee: Plan: s/p Right Total Knee Arthroplasty(Right) - Roni Whatley MD. EBL 5cc Pain control/bowel regimen/PT/OT per primary service ASA 81mg BID for DVT prophylaxis ordered Called pharmacy to give dose modafinil now -- takes in AM and 2-3pm in afternoon. Ordered for 9a/9pm for his narcolepsy Follows with Dr Velarde for HD [phone], M/W/ -- S/P Dialysis today with Dr Barahona Has dialysis today after discharge at [facility] (2) ESRD (end stage renal disease) on dialysis: Plan: ESRD on HD M/W/ Nephrology consulted - s/p dialysis today 12/04/22 Continue usual meds/sodium bicarb, PPI ordered (3) Hypertension: Plan: BP stable Takes atenolol on non-HD days -- BP currently 139/67 Had hypotension during dialysis in the 80s yesterday as stted above Monitor BP (4) Diabetes mellitus, type 2: Plan: On Tresiba at home Pharmacy was consulted for glycemic management (5) Narcolepsy: Plan: hx such, on modafinil 200mg BID (6) GERD (gastroesophageal reflux disease): Plan: on PPI Q2D (7) Sleep apnea: Plan: does not have device, doesn't use at baseline f/u Pcp (8) Hypotension: Plan: - Hypotensive yesterday during dialysis and systolic BP in 80s - Stroke alert was called in dialysis for ?facial droop and aphasia - CT head and CTA head and neck were negative - Neurology consult placed and felt likely had hypotensive related neurologic symptoms that 100% resolved with no focal deficits. Plan Thank you for allowing hospitalist service to participate in the care of Mr Tariq. Hospitalist service will follow along. Please call with any questions/concerns. Stable to be discharged this AM and to take patient to regular dialysis appointment already set up at [place] Admission and Anticipated Discharge Date Admission Date: December 04, 2022 Subjective Patient is post op day #2 Total Right TKA. He is complaining of some right knee pain and feels weak from being in bed so much. Yesterday at dialysis he qureshi d low BPs in the 80s systolically and then had ?facial droop and some aphasia. A stroke alert was called and he had stat CT head and CTA head and neck all negative and as evaluated by neurology. Patient's symptoms have completely resolved with no focal deficits. He is doing well today and is is being discharged home. He has dialysis appointment today at at [facility]. Review of Systems Review of Systems: All ROS negative unless stated + above or below Cardiovascular: no chest pain, no dyspnea, no syncope and no calf pain Neurologic: Patient had some aphasia 12/04/22 in dialysis after low BPs but all symptoms have resolved and he has no obvious complaints or deficits. Physical Exam Constitutional: WD/WN, vitals as above Eyes: PERRL, conjunctivae normal, anicteric sclerae Neck: trachea midline, no thyromegaly Respiratory: normal respiratory effort, lungs clear to auscultation Cardiovascular: RRR, no murmur, no edema Gastrointestinal (Abdomen): normal bowel sounds, soft, nontender, no hepatosplenomegaly Neurologic: patellar DTR's 2+ bilat, sensation intact and PERRL, EOMI, accommodation nl, no face palsy, no dysarthria Psychiatric: A+Ox3, euthymic affect Results & Data Results & Data ([facility]) Vital Signs (Past 12 Hours) Vital Signs Temp Pulse Pulse Resp BP Pulse Ox O2 Del Method 12/05/22 03:42 36.9 C 53 L 20 139/67 93 Room Air 12/04/22 22:04 56 L 12/04/22 23:25 36.8 C 54 L 20 129/70 95 Room Air Laboratory Results Abnormal lab results 12/04/22 12/04/22 12/04/22 Range/Units 08:06 12:34 15:59 POC Glucose 111 H 108 H 111 H (70-99) mg/dl Diagnostic Findings Neck CTA 12/04/22 12:55 CT ANGIOGRAM OF THE BRAIN; CT ANGIOGRAM OF THE NECK CLINICAL HISTORY: Strokelike symptoms. Change in mental status. Weakness. COMPARISON STUDY: Unenhanced CT of the brain performed the same day 12/04/2022. TECHNIQUE: Following the IV administration of 110 of Optiray 350, CT angiogram of the head and neck was performed from the aortic arch to the vertex. Images are reviewed in the axial, sagittal, and coronal planes. 3-D MIPS images are created and assessed. IV contrast was administered without complication. All measurements were calculated based on NASCET criteria. A dose lowering technique was utilized adhering to the principles of ALARA. FINDINGS: Brain parenchyma: There is age-related involutional change noting mild subcortical and periventricular microangiopathic disease. Small chronic lacunar infarcts are noted in the left basal ganglia. There is no evidence of hemorrhage, mass effect, or acute territorial ischemia noting angiographic phase technique. There is no evidence of enhancing mass lesion on the angiogram phase images. The ventricles, sulci, and cisterns are prominent secondary to involutional change. Amado-white matter differentiation is preserved. No extra- axial fluid collection is seen. Thoracic aorta: There is atherosclerotic calcification of the thoracic aorta. Visualized portions of the thoracic aorta are normal in caliber. The aortic arch demonstrates bovine variant anatomy. Right carotid arterial system: The right common carotid artery is widely patent, as are the right internal and external carotid arteries. Left carotid arterial system: The left common carotid artery is widely patent, as are the left internal and external carotid arteries. Minimal plaque is seen in the carotid bulb. Vertebral arteries: There is at least mild stenosis of the origin of the right vertebral artery. The vertebral arteries are otherwise widely patent bilaterally and codominant. Subclavian arteries: Widely patent bilaterally. Intracranial vasculature: There is atherosclerotic calcification of the cavernous carotid and vertebral arteries. The internal carotid arteries are patent at the skull base, as are the anterior and middle cerebral arteries bilaterally. The vertebrobasilar system and posterior cerebral arteries are widely patent. There is origin of the left posterior shoulder blurring. The vertebral arteries are codominant. There is no aneurysm, high-grade stenosis, or focal vessel cut off seen throughout the intracranial circulation. Jugular veins: Patent bilaterally. Dural sinuses: Patent. Lung apices: Partially visualized upper lobe lung parenchyma appears clear. Soft tissues: The visualized pharyngeal soft tissues are normal in appearance noting angiographic phase technique. The oropharyngeal airway appears widely patent. The salivary and thyroid glands are normal in appearance. No cervical lymphadenopathy is seen. Skeletal structures: The skeletal structures are osteopenic. The calvarium appears intact. The cervical spine is maintained noting advanced multilevel spondylosis. No lytic or blastic lesion is seen. Orbits: The bony orbits are intact. Orbital contents are normal as visualized noting bilateral ocular lens implants. Sinuses and mastoids: There is mild mucosal thickening within the frontal and maxillary sinuses. The remaining paranasal sinuses are clear. The mastoid air cells are well pneumatized. IMPRESSION: 1. There is no evidence of hemorrhage, mass effect, or acute territorial ischemia noting angiographic phase technique. 2. Unremarkable CT angiogram of the brain. 3. There is at least mild stenosis at the origin of the right vertebral artery. 4. Otherwise unremarkable CT angiogram of the neck. ACT 112: Negative or not required by law. Electronically signed by: Balwinder Pan M.D. 12/04/2022 1:38 PM PG Care Time/CCT Total # of Minutes Spent Total Time Spent with Patient: Total time spent is greater than 50% in coordination of care (as documented) at patient's floor/unit and/or counseling patient: Coding Level of Care Code 79684 SUB INP/OBS CARE 25MIN Diagnoses Osteoarthritis of right knee M17.11 ESRD (end stage renal disease) on dialysis N18.6; Z99.2 Hypertension I10 Diabetes mellitus, type 2 E11.9 Narcolepsy G47.419 GERD (gastroesophageal reflux disease) K21.9 Sleep apnea G47.30 Hypotension I95.9
--- NOTE | 2022-12-12 13:54 | Discharge Summary ---
Date of Service December 05, 2022 Admission HPI Per Admitting Provider Mr. Tariq is a 77-year-old male with right knee osteoarthritis. After the failure of conservative treatment I recommended proceeding with a total knee replacement. He has chronic renal failure and is on dialysis. His last dialysis was 3 days ago. 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 Discharge Data Allergies Allergy/AdvReac Type Severity Reaction Status Date / Time Penicillins Allergy Severe TONGUE Verified 12/03/22 05:43 SWELLING Consultations 12/03/22 09:24 Consult Hospitalist Routine 12/03/22 09:29 Consult Nephrology Stat 12/04/22 13:19 Consult Neurology Routine Procedures Performed Operation Date: 12/03/22 07:30 Actual Procedures p Right Total Knee Arthroplasty(Right) - Roni Whatley MD Ordered Studies 12/03/22 05:00 US - OR guided needle placemen Routine 12/04/22 12:55 CT head/brain wo con Stat CTA head w con [CT angio head w con] Stat CTA neck with con [CT angio neck with con] Stat Discharge Plan Discharge Items Patient Disposition: Home - Home Health Services Reason For Visit: Right Knee Osteoarthritis Discharge Diagnosis: Right knee osteoarthritis Activity: Per Instructions section Weightbearing: Right weightbearing Weightbearing Comment: WBAT to RLE with walker Non-emergency contact: Surgeon Call non-emergency contact if: your pain is not controlled, your temperature is above 101.5, your wound has increased redness, your wound has increased drainage and your wound pain has increased Follow-up/Referrals: Roni Whatley MD [Surgeon] - (follow up with Dr. Whatley or his PA in 2 weeks for post-op check up ) Daily Rodriguez PA-C [Outside Practitioners] - Diet: Regular Addtl Attending Provider Instructions: ACTIVITY RECOMMENDATIONS: SELF CARE INSTRUCTIONS AFTER TOTAL KNEE REPLACEMENT A. You may need to continue a physical therapy program after discharge from the hospital. There are several options available to you. Your doctor will assist you in selecting the best one for you. 1. An out-patient facility 2 to 3 times a week for therapy or home therapy. 2. Continue working on all exercises taught to you in the hospital. Your goals should be to increase bending of your knee to 90 degrees and beyond and to fully straighten your knee. B. You may progress at your own pace from walking with a walker or crutches to a cane; then to no assistive devices. C. Make walking a part of your daily routine. Be up as much as comfortable with rest periods throughout the day. Rest with leg elevation is very important. Use the ice wrap frequently for the first 3-4 weeks. D. There are no restrictions on activities. You may ride in a car, shop, participate in occupational therapy program director and all social activities. E. Wear the long elastic stockings (ZARA hose) 20 hours a day for 2 weeks after surgery. They can be removed several times a day for laundering and for a bath. F. You may shower, no tub baths until cleared by your doctor. SPECIAL CARE INSTRUCTIONS: VERY IMPORTANT TO READ AND REVIEW A. There are a few signs you need to watch for after you are home. Call [facility] if you notice any of the followin. Increased severe knee pain. Some pain is expected especially when you exercise. 2. Increased swelling in your leg or knee; pain or swelling of the calf muscle in either lower leg. 3. Any fluid drainage from the incision. 4. Shortness of breath or chest pain. B. Please call [facility] at if you have any concerns or questions about your operation or recovery. The doctor or his nurse will return your call promptly. C. You must take antibiotics before dental work, bladder, bowel or other surgery. Your doctor will provide you with a permanent care to carry describing this precaution. IMPORTANT: * REMEMBER TO TAKE ASPIRIN, 81 MG, TWICE DAILY FOR 4 WEEKS UNLESS OTHERWISE DIRECTED. THIS IS YOUR BLOOD THINNER. * HIGH RISK PATIENTS MAY BE PRESCRIBED A STRONGER BLOOD THINNER. THIS WILL BE PROVIDED AT DISCHARGE. * CALL IF INCREASED PAIN, REDNESS, DRAINAGE OR FEVER GREATER THAT 101. * WEAR ZARA HOSE 20 HOURS PER DAY FOR 2 WEEKS. * YOU MAY HAVE A LARGE BAND-AID LIKE DRESSING (SILVERON). THIS WILL REMAIN ON YOUR INCISION FOR 7 DAYS, THEN CAN BE REMOVED. IF INCISION IS LEAKING THROUGH DRESSING, CALL THE OFFICE . FOLLOW UP VISIT: If appointment is not already scheduled: Please call [facility] to make a follow-up appointment for 2 weeks after your surgery at . Pending Studies at Discharge: No Stand-Alone Forms: [facility] Assessment Centres, Smoking Cessation Medications and DC Order Prescriptions: New acetaminophen [Tylenol Extra Strength] 500 mg Tablet 1,000 mg PO Q8 14 Days Qty: 84 0RF aspirin 81 mg Tablet,Delayed Release (Dr/Ec) 81 mg PO BID 30 Days Qty: 60 0RF Continued sertraline 100 mg Tablet 100 mg PO QAM tramadol 50 mg Tablet 50 mg PO Q6H PRN (Reason: Pain) doxazosin 8 mg Tablet 8 mg PO HS modafinil 200 mg Tablet 200 mg PO BID sodium bicarbonate 650 mg Tablet 650 mg PO BID pantoprazole 40 mg Tablet,Delayed Release (Dr/Ec) 40 mg PO Q2D calcium carbonate [Tums] 200 mg calcium (500 mg) Tablet,Chewable 200 mg PO UD Patient Comments: WITH EVERY MEAL AND SNACK calcium polycarbophil [Fiber (calcium polycarbophil)] 625 mg Tablet 625 mg PO UD PRN (Reason: Diarrhea) Lactobacillus acidophilus Capsule 10 mg PO BID Patient Comments: Pt states takes 20 units AM and 50 units PM. duloxetine 60 mg Capsule,Delayed Release(Dr/Ec) 60 mg PO QAM cholecalciferol (vitamin D3) [Vitamin D3] 50 mcg (2,000 unit) Tablet 50 mcg PO DAILY febuxostat 40 mg Tablet 40 mg PO QAM magnesium oxide 400 mg magnesium Capsule 400 mg PO QAM insulin degludec [Tresiba FlexTouch U-100] 100 unit/mL (3 mL) Insulin Pen 1 unit SUBCUT UD Patient Comments: 20 UNITS QAM/50 UNITS QPM atenolol 25 mg Tablet 12.5 mg PO DIRECTED Rx Instructions: takes on non dialysis days Krames/Other Patient Handouts: Aspirin Oral Tablet, Oxycodone Oral Tablet, Knee Replace Recovery Admission Data Admit Date/Time: 12/03/22 09:25 Attending Provider: Roni Whatley Admit Provider: Roni Whatley Primary Care Provider: Edwige Freitas Other Providers: Craig Melendez ; Jerrell Farley ; Teto Elaine Other Interventions: Discharge Summary Assessment (RN) Last Done: 12/05/22 07:43
--- NOTE | 2022-12-12 13:58 | Discharge Summary ---
Date of Service December 12, 2022 Admission HPI Per Admitting Provider Mr. Tariq is a 77-year-old male with right knee osteoarthritis. After the failure of conservative treatment I recommended proceeding with a total knee replacement. He has chronic renal failure and is on dialysis. His last dialysis was 3 days ago. Consultation with his rn telephone triage suggested he would be okay to proceed with surgery and receive dialysis later today or tomorrow. Principal Diagnosis Right Knee DJD Discharge Exam RLE with dressing and quinton wrap in place. Able to wiggle toes without issue, good ROM of R ankle. Calf is nontender and compartments are soft. Able to flex and extend knee. Distal perfusion and sensation are grossly intact. Discharge Data Allergies Allergy/AdvReac Type Severity Reaction Status Date / Time Penicillins Allergy Severe TONGUE Verified 12/03/22 05:43 SWELLING Consultations 12/03/22 09:24 Consult Hospitalist Routine 12/03/22 09:29 Consult Nephrology Stat 12/04/22 13:19 Consult Neurology Routine Procedures Performed Operation Date: 12/03/22 07:30 Actual Procedures p Right Total Knee Arthroplasty(Right) - Roni Whatley MD Ordered Studies 12/03/22 05:00 US - OR guided needle placemen Routine 12/04/22 12:55 CT head/brain wo con Stat CTA head w con [CT angio head w con] Stat CTA neck with con [CT angio neck with con] Stat Hospital Course (1) Osteoarthritis of right knee: Pt is POD #2 from R TKA -Pain regime as written -PT/OT -DVT ppx with ASA 81mg BID, TEDs, SCDs -If pt cleared by medicine and neurology he may be d/c first this morning. He is scheduled for HD at [place] this morning at 10am. Total Time Total Time Spent Total Time Spent (In Minutes): 30 minutes Discharge Plan Discharge Items Patient Disposition: Home - Home Health Services Reason For Visit: Right Knee Osteoarthritis Discharge Diagnosis: Right knee osteoarthritis Condition on Discharge: Good Activity: Per Instructions section Weightbearing: Right weightbearing Weightbearing Comment: WBAT to RLE with walker Non-emergency contact: Surgeon Call non-emergency contact if: your pain is not controlled, your temperature is above 101.5, your wound has increased redness, your wound has increased drainage and your wound pain has increased Follow-up/Referrals: Roni Whatley MD [Surgeon] - (follow up with Dr. Whatley or his PA in 2 weeks for post-op check up ) Daily Rodriguez PA-C [Outside Practitioners] - Diet: Regular Addtl Attending Provider Instructions: ACTIVITY RECOMMENDATIONS: SELF CARE INSTRUCTIONS AFTER TOTAL KNEE REPLACEMENT A. You may need to continue a physical therapy program after discharge from the hospital. There are several options available to you. Your doctor will assist you in selecting the best one for you. 1. An out-patient facility 2 to 3 times a week for therapy or home therapy. 2. Continue working on all exercises taught to you in the hospital. Your goals should be to increase bending of your knee to 90 degrees and beyond and to fully straighten your knee. B. You may progress at your own pace from walking with a walker or crutches to a cane; then to no assistive devices. C. Make walking a part of your daily routine. Be up as much as comfortable with rest periods throughout the day. Rest with leg elevation is very important. Use the ice wrap frequently for the first 3-4 weeks. D. There are no restrictions on activities. You may ride in a car, shop, participate in skein bander and all social activities. E. Wear the long elastic stockings (ZARA hose) 20 hours a day for 2 weeks after surgery. They can be removed several times a day for laundering and for a bath. F. You may shower, no tub baths until cleared by your doctor. SPECIAL CARE INSTRUCTIONS: VERY IMPORTANT TO READ AND REVIEW A. There are a few signs you need to watch for after you are home. Call [facility] if you notice any of the followin. Increased severe knee pain. Some pain is expected especially when you exercise. 2. Increased swelling in your leg or knee; pain or swelling of the calf muscle in either lower leg. 3. Any fluid drainage from the incision. 4. Shortness of breath or chest pain. B. Please call [facility] at if you have any concerns or questions about your operation or recovery. The doctor or his nurse will return your call promptly. C. You must take antibiotics before dental work, bladder, bowel or other surgery. Your doctor will provide you with a permanent care to carry describing this precaution. IMPORTANT: * REMEMBER TO TAKE ASPIRIN, 81 MG, TWICE DAILY FOR 4 WEEKS UNLESS OTHERWISE DIRECTED. THIS IS YOUR BLOOD THINNER. * HIGH RISK PATIENTS MAY BE PRESCRIBED A STRONGER BLOOD THINNER. THIS WILL BE PROVIDED AT DISCHARGE. * CALL IF INCREASED PAIN, REDNESS, DRAINAGE OR FEVER GREATER THAT 101. * WEAR ZARA HOSE 20 HOURS PER DAY FOR 2 WEEKS. * YOU MAY HAVE A LARGE BAND-AID LIKE DRESSING (SILVERON). THIS WILL REMAIN ON YOUR INCISION FOR 7 DAYS, THEN CAN BE REMOVED. IF INCISION IS LEAKING THROUGH DRESSING, CALL THE OFFICE . FOLLOW UP VISIT: If appointment is not already scheduled: Please call [facility] to make a follow-up appointment for 2 weeks after your surgery at . Pending Studies at Discharge: No Stand-Alone Forms: My [facility] Blender, Smoking Cessation Medications and DC Order Prescriptions: New acetaminophen [Tylenol Extra Strength] 500 mg Tablet 1,000 mg PO Q8 14 Days Qty: 84 0RF aspirin 81 mg Tablet,Delayed Release (Dr/Ec) 81 mg PO BID 30 Days Qty: 60 0RF Continued sertraline 100 mg Tablet 100 mg PO QAM tramadol 50 mg Tablet 50 mg PO Q6H PRN (Reason: Pain) doxazosin 8 mg Tablet 8 mg PO HS modafinil 200 mg Tablet 200 mg PO BID sodium bicarbonate 650 mg Tablet 650 mg PO BID pantoprazole 40 mg Tablet,Delayed Release (Dr/Ec) 40 mg PO Q2D calcium carbonate [Tums] 200 mg calcium (500 mg) Tablet,Chewable 200 mg PO UD Patient Comments: WITH EVERY MEAL AND SNACK calcium polycarbophil [Fiber (calcium polycarbophil)] 625 mg Tablet 625 mg PO UD PRN (Reason: Diarrhea) Lactobacillus acidophilus Capsule 10 mg PO BID Patient Comments: Pt states takes 20 units AM and 50 units PM. duloxetine 60 mg Capsule,Delayed Release(Dr/Ec) 60 mg PO QAM cholecalciferol (vitamin D3) [Vitamin D3] 50 mcg (2,000 unit) Tablet 50 mcg PO DAILY febuxostat 40 mg Tablet 40 mg PO QAM magnesium oxide 400 mg magnesium Capsule 400 mg PO QAM insulin degludec [Tresiba FlexTouch U-100] 100 unit/mL (3 mL) Insulin Pen 1 unit SUBCUT UD Patient Comments: 20 UNITS QAM/50 UNITS QPM atenolol 25 mg Tablet 12.5 mg PO DIRECTED Rx Instructions: takes on non dialysis days Krames/Other Patient Handouts: Aspirin Oral Tablet, Oxycodone Oral Tablet, Knee Replace Recovery Admission Data Admit Date/Time: 12/03/22 09:25 Attending Provider: Roni Whatley Admit Provider: Roni Whatley Primary Care Provider: Edwige Freitas Other Providers: Craig Melendez ; Jerrell Farley ; Teto Elaine Other Interventions: Discharge Summary Assessment (RN) Last Done: 12/05/22 07:43 Supervising Physician Co-Signing Physician Notes I personally saw and examined the patient. I verified all jade points and agree with Clare Esparza PA-C with the following exceptions and/or additions: 77 year old with ESRD POD#0 right TKA. Patient feeling strange post operatively and initially thought his glucose was running low but BSG 180. Reports feeling like he is just suddenly walking into the light. No headache. O/E A&Ox3, HS RRR, no murmurs, Chest CTAB Abdo SNT, NV intact distal to operation site, dressing C/D/I, CN 2-> 12 intact, no pronator drift, did not fully exam lower legs due to recent surgery. A/P VTE/Pain/Bowel management per primary orthopedic team Odd feeling post operatively - obtained labs, possibly just due to uremia which should be sorted out with dialysis tomorrow. Possible just post anesthesia. Neurological exam is unremarkable. Advised patient to let nurses know if he is getting worse.
== END 2022-12-05 08:15 | disposition home health service (06) ==
LOC: ASU 05:04 → 3E 05:04